=== PATIENT | female | born 1945 | race Caucasian/White ===

== ENCOUNTER → 2018-07-20 11:29 | Outpatient (CLI) | payer MEDICARE, OTHER, SELFPAY ==
[2018-07-20 12:40] LABS: Hemoglobin A1C% w Est Avg Glu 5.4 % (4.0-6.0)
[2018-07-20 12:49] LABS: Alanine Aminotransferase 20 IU/L (9-52); Albumin 3.8 g/dL (3.5-5.0); Albumin Globulin Ratio 1.2 (1.0-2.8); Alkaline Phosphatase 96 U/L (38-126); Aspartate Aminotransferase 27 IU/L (14-36); BUN Creatinine Ratio 13.8 (6-22); Bilirubin Total 0.6 mg/dL (0.2-1.3); Blood Urea Nitrogen 11 mg/dL (7-17); Calcium 9.4 mg/dL (8.4-10.2); Carbon Dioxide 30 mmol/L (22-32); Chloride 95 mmol/L (98-107); Estimated Glomerular Filt Rate > 60.0 mL/min (>60); Globulin 3.2 g/dL (1.7-4.1); Glucose 124 mg/dL (80-110); HEMOLYSIS 15 (0-50); Potassium 4.6 mmol/L (3.4-5.1); Sodium 135 mmol/L (137-145)
[2018-07-20 13:16] LABS: Thyroid Stimulating Hormone 2.39 uIU/mL (0.47-4.68)
== END ==
PROVIDERS: Family Provider Internal Medicine; PCP Internal Medicine; Visit Provider Internal Medicine
DX: I10 Essential (primary) hypertension (principal); E03.9 Hypothyroidism, unspecified; E11.9 Type 2 diabetes mellitus without complications
CPT/HCPCS: 36415; 80053; 83036; 84443

== ENCOUNTER → 2018-08-09 10:31 | Outpatient (CLI) | payer MEDICARE, SELFPAY ==
[2018-08-09 11:12] LABS: Add Manual Diff / Slide Review NO; Basophils Percent Auto 0.8 % (0-2); Eosinophils Percent Auto 1.5 % (2-4); Hematocrit 38.1 % (36-46); Hemoglobin 12.4 g/dL (12.0-16.0); Lymphocytes Percent Auto 13.6 % (25-40); Mean Corpuscular HGB Conc 32.4 % (30-36); Mean Corpuscular Hemoglobin 30.9 PG (26-34); Mean Corpuscular Volume 95.2 fL (80-100); Monocytes Percent Auto 10.7 % (3-14); Neutrophils Absolute Auto 8100 /uL (3000-5900); Neutrophils Percent Auto 73.4 % (50-75); Platelet Count 347 X10^3/uL (150-400); Red Blood Cell Count 4.01 X10^6/uL (4.0-5.2); Red Cell Distribution Width 15.2 % (11.6-14.8); White Blood Cell Count 11.1 X10^3/uL (4.5-11.0)
[2018-08-09 11:22] LABS: Alanine Aminotransferase 14 IU/L (9-52); Albumin 3.4 g/dL (3.5-5.0); Albumin Globulin Ratio 1.1 (1.0-2.8); Alkaline Phosphatase 126 U/L (38-126); Aspartate Aminotransferase 21 IU/L (14-36); BUN Creatinine Ratio 13.3 (6-22); Bilirubin Total 0.6 mg/dL (0.2-1.3); Blood Urea Nitrogen 8 mg/dL (7-17); Calcium 9.1 mg/dL (8.4-10.2); Carbon Dioxide 28 mmol/L (22-32); Chloride 93 mmol/L (98-107); Estimated Glomerular Filt Rate > 60.0 mL/min (>60); Globulin 3.2 g/dL (1.7-4.1); Glucose 167 mg/dL (80-110); HEMOLYSIS 18 (0-50); Potassium 4.2 mmol/L (3.4-5.1); Sodium 132 mmol/L (137-145); Total Protein 6.6 g/dL (6.3-8.2)
--- NOTE | 2018-08-09 16:31 | PC.NURSE ---
Pre visit labs today, WBC noted as slightly elevated at 11.1 with ANC of 8100. All other values are unremarkable. MD visit on 08/21
[2018-08-10 15:57] LABS: Free Kappa Light Chain 29.9 mg/L (3.3-19.4); Free Kappa/ Lambda Ratio 0.88 (0.26-1.65); Free Lambda 33.8 mg/L (5.7-26.3)
[2018-08-11 21:19] LABS: Albumin 2.8 g/dL (3.8-4.8); Alpha 1 Globulin 0.5 g/dL (0.2-0.3); Alpha 2 Globulin 0.9 g/dL (0.5-0.9); Beta 1 Globulin 0.4 g/dL (0.4-0.6); Gamma Globulin 1.2 g/dL (0.8-1.7); Protein, Total 6.2 g/dL (6.1-8.1)
[2018-08-13 13:22] LABS: Beta-2-Microglobulin 4.42 mg/L (< 2.52)
== END ==
PROVIDERS: Nurse Practitioner Gerontology; Family Provider Internal Medicine; PCP Internal Medicine; Visit Provider Internal Medicine Hematology & Oncology
DX: D47.2 Monoclonal gammopathy (principal)
CPT/HCPCS: 36415; 80053; 82232; 83883; 84155; 84165; 85025

== ENCOUNTER → 2018-08-21 14:01 | Oncology outpatient (ONC) | payer MEDICARE, BC, SELFPAY ==
--- NOTE | 2018-08-21 14:50 | ONC.PN ---
PN -Subjective Interval history: Chief Complaint: 73-year-old female with presumed diagnosis of MGUS. Interim events It has been almost a year since he was evaluated by Dr. Vazquez. Throughout this period of time there has been no concerns or new events except 6 persistent fatigue. Patient has extensive other medical problems and is being followed by Dr. Boo. Patient has had a history of pancreatic cancer status post Whipple resection in 2013. Postoperatively she developed acute pancreatitis and was hospitalized for almost 4 and 6 months. Since after the discharge, patient has been having significant fatigue. Patient said it is slightly improving. He denies any fever or chills. No nausea no vomiting. No diarrhea. History of present illness Patient recalled that she has been diagnosed with MGUS for at least 6 years may be 8 years. And on November 03, 2011 Dr. Vazquez performed a bone marrow aspiration and biopsy. Under final diagnosis indicated no evidence of plasma cell dysplasia or a lympho proliferative disorder. It does show evidence of monoclonal gammopathy of undetermined significance. Fish analysis was negative for multiple myeloma profile. At the time the monoclonal protein in serum measured 0.2 grams/deciliter. But since 2011 multiple protein electrophoresis has never shown the presence of monoclonal protein in the peripheral blood serum. Patient has been undergoing active surveillance. - Patient Self-Reported Symptoms SR Constitution: Fatigue/Malaise - Additional ROS All systems PM: reviewed and no additional remarkable complaints except as stated Home Medications and Allergies Home Medications Medication Instructions Recorded Confirmed Type allopurinol 300 mg PO DAILY 03/21/18 03/21/18 History amlodipine 5 mg PO DAILY 03/21/18 03/21/18 History apixaban [Eliquis] 5 mg PO BID #60 tab 03/21/18 Rx biotin 5 mg PO DAILY 03/21/18 03/21/18 History cholecalciferol (vitamin D3) 1,000 unit PO DAILY 03/21/18 03/21/18 History [Vitamin D3] coenzyme Q10 [Co Q-10] 100 mg PO DAILY 03/21/18 03/21/18 History denosumab 60 mg SUB-Q [id number] 03/21/18 03/21/18 History desloratadine 5 mg PO DAILY 03/21/18 03/21/18 History esomeprazole magnesium 40 mg PO DAILY 03/21/18 03/21/18 History furosemide 20 mg PO DAILY 03/21/18 03/21/18 History levothyroxine 75 mcg PO QAM 03/21/18 03/21/18 History lorazepam 1 mg PO Q6H PRN 03/21/18 03/21/18 History potassium chloride 10 meq PO DAILY 03/21/18 03/21/18 History pravastatin 40 mg PO BEDTIME 03/21/18 03/21/18 History metoprolol tartrate 50 mg PO BID 08/21/18 History Allergies Allergy/AdvReac Type Severity Reaction Status Date / Time fosinopril [From MONOPRIL] Allergy Severe ANAPHLAXIS Unverified 03/01/18 12:04 amoxicillin [AMOXICILLIN] AdvReac Severe DIARRHEA, Unverified 03/01/18 12:04 NAUSEA colchicine [COLCHICINE] AdvReac Severe DIARRHEA, Unverified 03/01/18 12:04 NAUSEA Exam Vital signs: Temperature 97.8?, heart rate 74, respiratory rate 18, blood pressure 122/81, saturation 97% on room air, weight 54.3 kilos, ECOG 1 Narrative: Constitutional: Well developed, well nourished, not in any acute respiratory distress, average body habitus, well groomed, pleasant and cooperative. HEENT: Normocephalic atraumatic. Extraocular muscle movement intact. Pupils are round, equal and reactive to light and accommodations. Anicteric sclera. No hearing difficulty; Oral mucus membrane moist and without ulcers. Neck: Supple, symmetrical, and tracheal midline; No palpable thyromegaly and no palpable lymph nodes. Respiratory: No use of accessory muscles. Clear to auscultation, and no wheezes or rales or rubs. Cardiovascular: Regular rate and rhythm, S1 and S2 normal, no murmurs gallops or rubs. No JVD. No pitting edema of lower extremities. Abdomen: Soft, nontender, non-distended, bowel sounds normal, no palpable organomegaly, no hernia, no palpable masses. Lower extremities: No palpable pedal edema. Lymphatic: no palpable lymph nodes in the neck, axillae, or groins. Musculoskeletal: normal gait and station, no clubbing, no cyanosis, no pitting edema. Skin: no rashes, no ulcers, no petechiae Neurological: Awake and alert and oriented x3. CN II-XII grossly intact. No focal motor or sensory deficit. Psychiatric: Good judgment, good insight, normal affect, normal thought process, cooperative, no depression, no anxiety. Results - Labs The results from August 09 were reviewed especially the protein electrophoresis. No abnormal monoclonal protein was identified. And serum free light chain ratio is within the normal range. - Imaging Additional studies: Procedures Closed [endoscopic] biopsy of large intestine (07/08/15) Replacement of Right Hip Joint with Metal on Polyethylene Synthetic Substitute, Open Approach (08/30/16) Venous catheterization, not elsewhere classified (08/10/13) Assessment and Plan (1) MGUS (monoclonal gammopathy of unknown significance) Protein electrophoresis of the peripheral blood serum has been persistently negative for the past several years. And the serum free light chain ratio is also within the normal range. In my opinion, probably the patient does not have any plasma cell dyscrasia. From that point of view, I will have the patient follow up on as-needed basis based on future events. Patient voiced understanding. (2) History of pancreatic cancer Patient underwent Whipple procedure probably in 2011 at the [facility]. Since then patient has been doing well without any clinical evidence of disease recurrence or metastasis. Patient would like to follow up with his primary care provider. (3) Fatigue Status: Acute The profound fatigue has been relatively stable probably slightly better according to patient. It has been present for the last several years since after the prolonged hospitalization for acute pancreatitis. Patient would like to continue follow-up with his primary care provider. (4) Osteoporosis Patient currently is taking calcium and vitamin-D. Patient has already received 1 dose of Prolia. Patient is scheduled to see Dr. Carmona to continue the injection. I talked with the patient if she needs any help in terms of injection, she is more than welcome to call us for follow-up visit.
[2018-08-21 14:52] VITALS: BP 125/81; PULSE 74; RESP 18; TEMP 36.6; O2SAT 97
== END ==
LOC: ONC 14:06
PROVIDERS: Family Provider Internal Medicine; PCP Internal Medicine; Visit Provider Internal Medicine Hematology & Oncology
DX: D47.2 Monoclonal gammopathy (principal); M81.0 Age-related osteoporosis without current pathological fracture; R53.83 Other fatigue; Z85.07 Personal history of malignant neoplasm of pancreas
CPT/HCPCS: 99214

== ENCOUNTER 2020-03-06 16:02 | Emergency (ER) | payer MEDICARE, BC, SELFPAY ==
--- NOTE | 2020-03-06 16:08 | DI.CT.S_ITS ---
PROCEDURE: CT HEAD/BRAIN WO CON INDICATIONS: mechanical fall, laceration to occiput, no neck pain. TECHNIQUE: Noncontrast 4.5 mm thick angled axial sections acquired from the foramen magnum to the vertex, with coronal and sagittal reformats. For radiation dose reduction, the following was used: automated exposure control, adjustment of mA and/or kV according to patient size. COMPARISON: [facility], , BRAIN WITH AND WITHOUT CONTRAS, 01/26/2011, 18:49. (A prior head CT from 2005 is not available for review from the archive at the time of this dictation.) FINDINGS: Image quality: Excellent. CSF spaces: Basal cisterns are patent. No extra-axial fluid collections. The ventricles are symmetric in size and shape. Brain: No intracranial bleeds or masses. There is cerebral volume loss for age, with resultant ventricular and sulcal prominence. There are periventricular and deep white matter chronic small vessel ischemic changes. There is intracranial internal carotid artery atherosclerosis. Skull and face: Right superior parietal laceration can be seen. No underlying calvarial fracture is seen. Calvarium and visualized facial bones appear intact, without suspicious lesions. Sinuses: Visualized sinuses and mastoids are clear. IMPRESSION: No acute intracranial hemorrhage is seen. No acute intracranial process is seen. Right superior parietal scalp laceration is seen, without an associated calvarial fracture. Dictated by: Joseph Chaudhry M.D. on 03/06/2020 at 15:35 Approved by: Joseph Chaudhry M.D. on 03/06/2020 at 15:37
--- NOTE | 2020-03-06 16:18 | ED.FALL ---
HPI - Fall General Chief Complaint: Fall Stated Complaint: trip and fall w/ lac on back of head. Time Seen by Provider: 03/06/20 16:17 Source: patient and EMS Mode of arrival: EMS Limitations: no limitations History of Present Illness HPI Narrative: This is a 75-year-old female who states that she tripped over her oxygen tubing and fell and hit the back of her head. She denies any other injuries. She denies any neck, back pain. No chest pain or shortness of breath other than some discomfort on her breast and a rash underneath both breasts which she is concerned may be fungal. She denies any nausea vomiting. No vision changes. No pain in her extremities or hips. Patient does take Eliquis. She does have a small cut on the back of her scalp. Patient states otherwise she is asymptomatic. She states that the rash underneath her breasts this initially itchy and is quite tender it has been there for 2 weeks and slowly worsening. She is on Eliquis for atrial fibrillation. Related Data Home Medications Medication Instructions Recorded Confirmed allopurinol 300 mg PO DAILY 03/21/18 03/21/18 amlodipine 5 mg PO DAILY 03/21/18 03/21/18 biotin 5 mg PO DAILY 03/21/18 03/21/18 cholecalciferol (vitamin D3) 1,000 unit PO DAILY 03/21/18 03/21/18 [Vitamin D3] coenzyme Q10 [Co Q-10] 100 mg PO DAILY 03/21/18 03/21/18 denosumab 60 mg SUB-Q [id number] 03/21/18 03/21/18 desloratadine 5 mg PO DAILY 03/21/18 03/21/18 esomeprazole magnesium 40 mg PO DAILY 03/21/18 03/21/18 furosemide 20 mg PO DAILY 03/21/18 03/21/18 levothyroxine 75 mcg PO QAM 03/21/18 03/21/18 lorazepam 1 mg PO Q6H PRN 03/21/18 03/21/18 potassium chloride 10 meq PO DAILY 03/21/18 03/21/18 pravastatin 40 mg PO BEDTIME 03/21/18 03/21/18 metoprolol tartrate 50 mg PO BID 08/21/18 Previous Rx's Medication Instructions Recorded apixaban [Eliquis] 5 mg PO BID #60 tab 03/21/18 clotrimazole 1 applictn TOP BID 14 Days 03/06/20 Allergies Allergy/AdvReac Type Severity Reaction Status Date / Time fosinopril [From MONOPRIL] Allergy Severe ANAPHLAXIS Verified 03/06/20 16:39 amoxicillin [AMOXICILLIN] AdvReac Severe DIARRHEA, Verified 03/06/20 16:39 NAUSEA colchicine [COLCHICINE] AdvReac Severe DIARRHEA, Verified 03/06/20 16:39 NAUSEA Review of Systems Review of Systems ROS Unobtainable: All systems reviewed & are unremarkable except as noted in HPI and below Patient History Medical History Diabetes mellitus type 2, diet-controlled (Acute) Gout (Acute) Hyperlipidemia (Acute) Hypertension (Acute) Hypothyroid (Acute) Osteoarthritis (Acute) Osteoporosis (Acute) Paroxysmal atrial fibrillation (Acute) Pulmonary fibrosis (Acute) Syncope (Chronic) Syncope and collapse (Acute) Surgical History S/P total hip arthroplasty (Acute) S/P total knee arthroplasty (Acute) Exam Narrative Exam Narrative: GEN: Patient appears in mild distress. HEAD: Patient has a 1.5 cm laceration posterior scalp, no raccoon/Hou sign. NECK: Nontender, painless range of motion, trachea midline Negative for Nexus criteria, there is no mid line tenderness, distracting injury, altered mental status, neuro deficit, recent EtOH. EYES: PERRLA, EOMI ENT: External inspection normal, trachea is midline, TM's are normal no hemotypanum, Nares are clear, no septal hematoma, no dental or oral injury, airway is normal and with normal occlusion, No bony tenderness RESP: Chest is nontender and has symmetric movement, no ecchymosis, breath sounds are normal no crackles, wheezes or rales CVS: Heart sounds are normal, no murmur noted, No JVD. ABG/GI: Nontender, soft, normal bowel sounds, no distention, no organomegaly, pelvic rock is negative NEURO: Oriented AOx3, neuro is grossly intact, sensation and motor is normal all 4 extremities moving, cranial nerves II through XII are intact, GCS is 15 PSYCH: Normal mood and affect SKIN: Intact, warm and dry, no crepitus and without decubitus, patient has erythema with scalp edges that appears consistent with a fungal infection on bilateral breasts. There is no active drainage of the area does look slightly moist. There is no foul odor. BACK: No CVA tenderness, no vertebral tenderness, no step-off's, no crepitus EXT: Atraumatic, hips are nontender, no pedal edema, normal color and temperature, normal range of motion of extremities with normal tendon exam, 2+ pulses in all four extremities Initial Vital Signs Initial Vital Signs: Vital Signs Pulse Rate 73 03/06/20 16:20 Respiratory Rate 100 H 03/06/20 16:20 Blood Pressure 159/73 H 03/06/20 16:20 Pulse Oximetry 99 03/06/20 16:20 Procedures Laceration Repair Laceration 1: Site: scalp Size (cm): 1.4 Description: linear Depth: simple, single layer Local Anesthetic: other anesthetic (topical prilocaine) Pre-repair: wound explored, irrigated extensively and deep structures intact (no galeal involvement) Skin layer closed with: martín (#5) Number of sutures: 5 Scores GCS [place] coma scale eye opening: Spontaneous Stephanie coma scale verbal response: Orientated [place] coma scale motor response: Obey commands [place] coma scale total score: 15 Course Orders Ordered: ED Orders 03/06/20 16:08 CT head/brain wo con Stat Discontinued Medications Diphtheria/Tetanus/Acell Pertussis (Adacel) 0.5 ml IM .ONCE ONE Stop: 03/06/20 16:18 Last Admin: 03/06/20 17:03 Dose: 0.5 ml Documented by: CONCHIS Lidocaine/Prilocaine (Lidocaine-Prilocaine Cream) 5 gm TOP NOW ONE Stop: 03/06/20 16:18 Last Admin: 03/06/20 17:03 Dose: 5 gm Documented by: CONCHIS Vital Signs Vital signs: Vital Signs - 8 hr 03/06/20 16:20 03/06/20 16:24 03/06/20 17:16 Pulse Rate 73 72 75 Respiratory Rate 100 H 16 Blood Pressure 159/73 H Blood Pressure [Left Arm] 136/67 137/68 Pulse Oximetry 99 97 99 MDM - Fall Imaging Data CT scan - head: Radiologist's Impression: [address] [address] [address] Scan Report Signed Patient: Michelle Quintanilla JMR#: [id number] : 3Acct:[id number] Age/Sex: 75 / FDate of Service: 03/06/20 Loc: ED Accession Number: [id number] Procedure: CT head/brain wo con Ordering Provider: Kim Ellis D.O. PROCEDURE: CT HEAD/BRAIN WO CON INDICATIONS: mechanical fall, laceration to occiput, no neck pain. TECHNIQUE: Noncontrast 4.5 mm thick angled axial sections acquired from the foramen magnum to the vertex, with coronal and sagittal reformats. For radiation dose reduction, the following was used: automated exposure control, adjustment of mA and/or kV according to patient size. COMPARISON: [facility], , BRAIN WITH AND WITHOUT CONTRAS, 01/26/2011, 18:49. (A prior head CT from 2005 is not available for review from the archive at the time of this dictation.) FINDINGS: Image quality: Excellent. CSF spaces: Basal cisterns are patent. No extra-axial fluid collections. The ventricles are symmetric in size and shape. Brain: No intracranial bleeds or masses. There is cerebral volume loss for age, with resultant ventricular and sulcal prominence. There are periventricular and deep white matter chronic small vessel ischemic changes. There is intracranial internal carotid artery atherosclerosis. Skull and face: Right superior parietal laceration can be seen. No underlying calvarial fracture is seen. Calvarium and visualized facial bones appear intact, without suspicious lesions. Sinuses: Visualized sinuses and mastoids are clear. IMPRESSION: No acute intracranial hemorrhage is seen. No acute intracranial process is seen. Right superior parietal scalp laceration is seen, without an associated calvarial fracture. Dictated by: Joseph Chaudhry M.D. on 03/06/2020 at 15:35 Approved by: Joseph Chaudhry M.D. on 03/06/2020 at 15:37 MDM Narrative Medical decision making narrative: Patient comes in with ground level fall. She does have a laceration on her posterior scalp which was closed with [address] is negative this was obtained because she is on Eliquis. She was able to be clinically cleared with her C-spine. Patient did show me that she has a rash which wean both breasts that looks very suspiciously fungal. We discussed keeping it clean, dry if she is able give her prescription for clotrimazole twice daily for the next 2 weeks with plan for recheck. Patient expressed understanding. Discharge Plan Departure Patient Disposition: Home Clinical Impression: Smiley infection, Laceration of scalp, Fall from ground level Instructions: Yeast Infection-Skin Activity Restrictions/Additional Instructions: Wound Care: Keep wound(s) clean and dry. Wash daily with soap and water only. Do not use over the counter products (alcohol or peroxide)on the wounds unless instructed by a physician. Under scalp laceration. On the infection underneath your breasts apply antifungal twice daily x 2 weeks. Keep the area dry and after washing, fully pat dry after washing and allow to air out intermittently during the day. If wound condition worsens (increased/expanding redness, developing fluid blisters, or worsening pain), either contact your doctor for an urgent re-assessment , or return to the Emergency Department. Return to the Emergency Department for any new or worsening symptoms. Return to the ED, urgent care, or vist a primary care doctor for removal or suture or matrín in 7-10 days Return if fever greater than 100.4 Fahrenheit, increased swelling, increasing pain or worsening symptoms such as increased discharge or spreading redness, altered mental new confusion, vision changes, severe headaches, persistent vomiting, new neck or back pain, new numbness tingling or weakness. Prescriptions: New clotrimazole 1 % cream 1 applictn TOP BID 14 Days RF: 0 No Action potassium chloride 10 mEq Capsule, Extended Release 10 meq PO DAILY RF: 0 pravastatin 40 mg Tablet 40 mg PO BEDTIME RF: 0 amlodipine 5 mg Tablet 5 mg PO DAILY RF: 0 levothyroxine 75 mcg Tablet 75 mcg PO QAM RF: 0 lorazepam 0.5 mg Tablet 1 mg PO Q6H PRN (Reason: Anxiety) RF: 0 desloratadine 5 mg Tablet 5 mg PO DAILY RF: 0 esomeprazole magnesium 40 mg Capsule,Delayed Release(Dr/Ec) 40 mg PO DAILY RF: 0 allopurinol 300 mg Tablet 300 mg PO DAILY RF: 0 furosemide 20 mg Tablet 20 mg PO DAILY RF: 0 coenzyme Q10 [Co Q-10] 100 mg Capsule 100 mg PO DAILY RF: 0 cholecalciferol (vitamin D3) [Vitamin D3] 1,000 unit Tablet 1,000 unit PO DAILY RF: 0 biotin 5 mg Tablet 5 mg PO DAILY RF: 0 denosumab 60 mg/mL Syringe 60 mg SUB-Q [id number] RF: 0 apixaban [Eliquis] 5 mg Tablet 5 mg PO BID Qty: 60 RF: 0 metoprolol tartrate 100 mg tablet 50 mg PO BID RF: 0 Referrals: Salvador Concepcion MD [Primary Care Provider] -
[2020-03-06 16:20] VITALS: BP 159/73; PULSE 73; RESP 100; O2SAT 99
[2020-03-06 16:24] VITALS: BP 136/67; PULSE 72; RESP 16; O2SAT 97
[2020-03-06] MEDS: LIDOCAINE/PRILOCAINE 5 GM TOP (17:03)
[2020-03-06] MEDS: TET,DIPH,PERTUSS(ACELL),VAC/PF 0.5 ML SYRINGE IM (17:03)
[2020-03-06 17:16] VITALS: BP 137/68; PULSE 75; O2SAT 99
[2020-03-06 18:28] VITALS: BP 137/61; PULSE 74; O2SAT 99
[2020-03-06 18:54] VITALS: BP 137/61; PULSE 74; RESP 14; O2SAT 99
--- NOTE | 2020-03-06 19:00 | PC.NURSE ---
Patient was given skin martín in her scalp. Xeroform gauze, 4x4 gauze, coban, stockinette.
== END 2020-03-06 18:59 | disposition home or self-care (01) ==
PROVIDERS: Emergency Provider Emergency Medicine; Family Provider Internal Medicine; PCP Internal Medicine
DX: S01.01XA Laceration without foreign body of scalp, initial encounter (principal); B37.2 Candidiasis of skin and nail; W18.30XA Fall on same level, unspecified, initial encounter; I48.91 Unspecified atrial fibrillation; Z79.01 Long term (current) use of anticoagulants; Z23 Encounter for immunization
CPT/HCPCS: 12001; 70450; 90471; 99284; 90715

== ENCOUNTER 2020-03-07 21:24 | Inpatient (IN) | payer MEDICARE, BC, SELFPAY ==
[2020-03-07 21:25] VITALS: BP 185/77; PULSE 82; RESP 20; TEMP 36.8; O2SAT 98; BMI 22.4
--- NOTE | 2020-03-07 21:41 | DI.CT.S_ITS ---
PROCEDURE: CT HEAD/BRAIN WO CON INDICATIONS: fall with head injury, anticoagulated, worse than yesterday TECHNIQUE: Noncontrast 4.5 mm thick angled axial sections acquired from the foramen magnum to the vertex, with coronal and sagittal reformats. For radiation dose reduction, the following was used: automated exposure control, adjustment of mA and/or kV according to patient size. COMPARISON: [facility], CT, CT HEAD/BRAIN WO CON, 03/06/2020, 16:09. FINDINGS: Image quality: Diagnostic. CSF spaces: Basal cisterns are patent. No extra-axial fluid collections. Ventricles are moderately prominent with corresponding parenchymal volume loss. Brain: No midline shift. No intracranial masses or hemorrhage. Pool-white matter interface is normal. Moderate-sized areas of low-attenuation are seen within the deep white matter and periventricular white matter of the supratentorial brain. Skull and face: Calvarium and visualized facial bones are intact, without suspicious lesions. There is a small area of subcutaneous increased attenuation identified overlying the right frontoparietal region of the head with overlying skin martín, suggesting a small area of scalp hematoma. No underlying fractures are appreciated. Sinuses: Visualized sinuses and mastoids are clear. IMPRESSION: 1. No acute intracranial hemorrhage. 2. Chronic small vessel skin changes and parenchymal volume loss are similar to the previous study. Dictated by: Leroy Lee M.D. on 03/08/2020 at 7:47 Approved by: Leroy Lee M.D. on 03/08/2020 at 7:49
[2020-03-07 22:00] VITALS: BP 167/77; PULSE 81; RESP 16; O2SAT 98
--- NOTE | 2020-03-07 22:11 | ED.NAVMDI ---
HPI - Nausea/Vomiting/Diarrhea General Chief complaint: Nausea/Vomiting/Diarrhea Stated complaint: Nausea Time Seen by Provider: 03/07/20 21:25 Source: patient and EMS Mode of arrival: EMS Limitations: no limitations History of Present Illness HPI Narrative: 75-year-old female AFib on Eliquis and untreated pancreatic cancer presents by EMS for the 2nd time in as many days. Yesterday she was seen and evaluated after she tripped on her oxygen tubing and fell causing a laceration of her scalp. She had a head CT which was read as normal and had martín placed. Additionally she was complaining of an itchy rash underneath her bilateral breasts which was diagnosed with candidiasis. Today she is complaining of nausea and some weakness. She denies any fever or chills. She denies any significant shortness of breath above and beyond her normal. She denies any cough or hemoptysis. She has had no diarrhea and is otherwise well and free of complaint. Her PCP is , but she admits she hasn't seen him in some time. She denies any cough. She denies any urinary complaints such as dysuria, ferquency, or urgency Related Data Home Medications Medication Instructions Recorded Confirmed allopurinol 300 mg PO DAILY 03/21/18 03/21/18 amlodipine 5 mg PO DAILY 03/21/18 03/21/18 biotin 5 mg PO DAILY 03/21/18 03/21/18 cholecalciferol (vitamin D3) 1,000 unit PO DAILY 03/21/18 03/21/18 [Vitamin D3] coenzyme Q10 [Co Q-10] 100 mg PO DAILY 03/21/18 03/21/18 denosumab 60 mg SUB-Q [id number] 03/21/18 03/21/18 desloratadine 5 mg PO DAILY 03/21/18 03/21/18 esomeprazole magnesium 40 mg PO DAILY 03/21/18 03/21/18 furosemide 20 mg PO DAILY 03/21/18 03/21/18 levothyroxine 75 mcg PO QAM 03/21/18 03/21/18 lorazepam 1 mg PO Q6H PRN 03/21/18 03/21/18 potassium chloride 10 meq PO DAILY 03/21/18 03/21/18 pravastatin 40 mg PO BEDTIME 03/21/18 03/21/18 metoprolol tartrate 50 mg PO BID 08/21/18 Previous Rx's Medication Instructions Recorded apixaban [Eliquis] 5 mg PO BID #60 tab 03/21/18 clotrimazole 1 applictn TOP BID 14 Days 03/06/20 Allergies Allergy/AdvReac Type Severity Reaction Status Date / Time fosinopril [From MONOPRIL] Allergy Severe ANAPHLAXIS Verified 03/07/20 21:35 amoxicillin [AMOXICILLIN] AdvReac Severe DIARRHEA, Verified 03/07/20 21:35 NAUSEA colchicine [COLCHICINE] AdvReac Severe DIARRHEA, Verified 03/07/20 21:35 NAUSEA Review of Systems Constitutional Constitutional: Denies chills, Reports fatigue, Denies fever(s), Denies frequent falls, Denies lethargy and Reports weakness Eyes Eyes: Denies change in vision, Denies eye discharge, Denies irritation and Denies loss of vision ENT Ears, Nose, Mouth, and Throat: Denies change in voice, Denies dizziness, Denies neck pain, Denies sore throat and Denies throat swelling Cardiovascular Cardiovascular: Denies chest pain, Denies irregular heart rhythm, Denies lightheadedness, Denies palpitations, Denies dyspnea, Denies dyspnea on exertion and Denies orthopnea Respiratory Respiratory: Denies cough, Denies dyspnea, Denies dyspnea on exertion and Denies wheezing Gastrointestinal Gastrointestinal: Denies abdominal pain, Denies change in bowel habits, Denies diarrhea, Reports nausea and Denies vomiting Genitourinary Genitourinary: Denies hematuria, Denies flank pain, Denies urinary incontinence and Denies urinary urgency Comments: decreased urine out put Musculoskeletal Musculoskeletal: Denies back pain, Denies muscle weakness, Denies neck pain, Denies numbness and Denies tingling Integumentary/Breasts Skin/Breast: Denies pruritus, Denies erythema, Denies rash and Denies wounds Neurologic Neurologic: Denies behavioral changes, Denies confusion, Denies dizziness, Denies frequent falls, Denies loss of vision, Denies numbness, Denies tingling and Reports weakness Psychiatric Psychiatric: Denies anxiety, Denies behavioral changes, Denies confusion, Denies depression, Denies homicidal ideation and Denies suicidal ideation Endocrine Endocrine: Reports fatigue, Denies flushing and Denies palpitations Hematologic/Lymphatic Hematologic/Lymphatic: Denies easy bruising Allergic/Immunologic Allergic/Immunologic: Denies urticaria, Denies throat swelling and Denies wheezing Patient History Medical History Diabetes mellitus type 2, diet-controlled (Acute) Gout (Acute) Hyperlipidemia (Acute) Hypertension (Acute) Hypothyroid (Acute) Osteoarthritis (Acute) Osteoporosis (Acute) Paroxysmal atrial fibrillation (Acute) Pulmonary fibrosis (Acute) Syncope (Chronic) Syncope and collapse (Acute) Surgical History S/P total hip arthroplasty (Acute) S/P total knee arthroplasty (Acute) Social History Smoking Status: Former smoker Smoking Status: Former smoker alcohol intake frequency: 0-2 drinks per day Substance Use Type: does not use Exam Narrative Exam Narrative: GENERAL: [75] year old patient appears stated age. Frail elderly, no obvious pain. HEAD: Atraumatic. Normocephalic. EYES: Pupils equal round and reactive. Extraocular motions intact. No scleral icterus. No injection or drainage. ENT: Dry mucous membranes. Nose without bleeding, purulent drainage. Throat without erythema, tonsillar hypertrophy or exudate. Airway patent. NECK: Trachea midline. Non tender CARDIOVASCULAR: Regular rate and rhythm without murmurs, gallops, or rubs. RESPIRATORY: Clear to auscultation. Breath sounds equal bilaterally. No wheezes, rales, or rhonchi. GASTROINTESTINAL: Abdomen soft, non-tender, nondistended. EXTREMITIES: No edema or joint tenderness. BACK: Nontender without deformity or crepitance. No flank tenderness. NEURO: AOx3. SKIN: No rash or erythema of visible areas. Poor turgor Initial Vital Signs Initial Vital Signs: Vital Signs Temperature 98.3 F 03/07/20 21:25 Pulse Rate 82 03/07/20 21:25 Respiratory Rate 20 03/07/20 21:25 Blood Pressure 185/77 H 03/07/20 21:25 Pulse Oximetry 98 03/07/20 21:25 Course Course Course Narrative: after 1 liter of fluid patient still unable to complete orthostatics and becomes too lightheaded to stand. She still has not produced urine Orders Ordered: ED Orders 03/07/20 21:33 EKG-12 Lead Routine 03/07/20 21:41 CT head/brain wo con Stat 03/07/20 22:10 Complete Blood Count AUTO DIFF Stat 03/07/20 22:55 XR chest 1V Stat 03/07/20 23:25 Basic Metabolic Panel Stat Lactate (Lactic Acid) Stat 03/07/20 23:33 Blood Culture Stat Ceftriaxone Sodium/Dextrose (Rocephin) 1 gm in 50 mls @ 100 mls/hr IV NOW ONE Stop: 03/08/20 00:40 Ondansetron HCl (Zofran) 4 mg IV Q4HR PRN PRN Reason: Nausea And Vomiting Last Admin: 03/07/20 22:22 Dose: 4 mg Documented by: [email or web address] Discontinued Medications Sodium Chloride (Normal Saline 0.9%) 1,000 mls @ 1,000 mls/hr IV BOLUS ONE Stop: 03/07/20 22:38 Last Infusion: 03/08/20 00:26 Dose: 1,000 mls/hr Documented by: [email or web address] Admin: 03/07/20 22:22 Dose: 1,000 mls/hr Documented by: [email or web address] Sodium Chloride (Normal Saline 0.9%) 1,000 mls @ 1,000 mls/hr IV BOLUS ONE Stop: 03/08/20 00:20 Pantoprazole Sodium (Protonix) 40 mg IV NOW ONE Stop: 03/07/20 21:40 Last Admin: 03/07/20 22:17 Dose: 40 mg Documented by: [email or web address] Vital Signs Vital signs: Vital Signs - 8 hr 03/07/20 21:25 03/07/20 22:00 03/07/20 22:32 Temperature 98.3 F Pulse Rate 82 81 80 Respiratory Rate 20 16 16 Blood Pressure 185/77 H Blood Pressure [Left Arm] 167/77 H 160/70 H Pulse Oximetry 98 98 98 03/07/20 23:15 03/08/20 00:15 Temperature 98.4 F Pulse Rate 85 78 Respiratory Rate 20 16 Blood Pressure Blood Pressure [Left Arm] 162/93 H 128/59 L Pulse Oximetry 98 100 MDM - Nausea/Vomiting/Diarrhea Lab Data Attestation: I reviewed the patient's lab results. Result diagrams: 03/07/20 22:10 04/17/20 23:25 Labs: Lab Results 03/07/20 03/07/20 03/07/20 Range/Units 22:10 23:25 23:25 WBC 17.7 H (4.5-11.0) X10^3/uL RBC 4.58 (4.0-5.2) X10^6/uL Hgb 12.6 (12.0-16.0) g/dL Hct 38.9 (36-46) % MCV 84.8 (80-100) fL MCH 27.6 (26-34) PG MCHC 32.5 (30-36) % RDW 17.5 H (11.6-14.8) % Plt Count 404 H (150-400) X10^3/uL Neut % (Auto) 86.3 H (50-75) % Lymph % (Auto) 6.3 L (25-40) % [place] % (Auto) 5.5 (3-14) % Eos % (Auto) 1.3 L (2-4) % Baso % (Auto) 0.6 (0-2) % Neut # (Auto) 74205 H (9198-7502) /uL Lymph # (Auto) 1100 (6085-2298) /uL [place] # (Auto) 1000 H (0-900) /uL Eos # (Auto) 200 (0-450) /uL Baso # (Auto) 100 (0-100) /uL Sodium 122 L (137-145) mmol/L Potassium 4.2 (3.4-5.1) mmol/L Chloride 87 L (98-107) mmol/L Carbon Dioxide 27 (22-32) mmol/L BUN 4 L (7-17) mg/dL Creatinine 0.57 (0.52-1.04) mg/dL Estimated GFR > 60.0 (>60) mL/min BUN/Creatinine Ratio 7.0 (6-22) Glucose 114 H (80-110) mg/dL Lactate 1.2 (0.7-2.1) mmol/L Calcium 8.6 (8.4-10.2) mg/dL Imaging Data CT scan - head: Radiologist's Impression: Chronic Involutional Volume Loss with no acute findings Chest x-ray: My Impression: stable appearance of pulmonary fibrosis, NAP Discharge Plan Departure Patient Disposition: Admitted As Inpatient Clinical Impression: Acute hyponatremia, Acute dehydration Admit Date/Time: 03/08/20 00:19 Admit Provider: Sg Ventura
[2020-03-07] MEDS: PANTOPRAZOLE 40 MG VIAL IV (22:17)
[2020-03-07] MEDS: ONDANSETRON 4 MG/2 ML INJ IV (22:22)
[2020-03-07] MEDS: SODIUM CHLORIDE 0.9% 1,000 ML 1000 ML IV (22:22)
[2020-03-07 22:32] VITALS: BP 160/70; PULSE 80; RESP 16; O2SAT 98
[2020-03-07 22:45] LABS: Add Manual Diff / Slide Review NO; Basophils Absolute Auto 100 /uL (0-100); Basophils Percent Auto 0.6 % (0-2); Eosinophils Absolute Auto 200 /uL (0-450); Eosinophils Percent Auto 1.3 % (2-4); Hematocrit 38.9 % (36-46); Hemoglobin 12.6 g/dL (12.0-16.0); Lymphocytes Absolute Auto 1100 /uL (1100-4500); Lymphocytes Percent Auto 6.3 % (25-40); Mean Corpuscular HGB Conc 32.5 % (30-36); Mean Corpuscular Hemoglobin 27.6 PG (26-34); Mean Corpuscular Volume 84.8 fL (80-100); Monocytes Absolute Auto 1000 /uL (0-900); Monocytes Percent Auto 5.5 % (3-14); Neutrophils Absolute Auto 15300 /uL (1500-7000); Neutrophils Percent Auto 86.3 % (50-75); Platelet Count 404 X10^3/uL (150-400); Red Blood Cell Count 4.58 X10^6/uL (4.0-5.2); Red Cell Distribution Width 17.5 % (11.6-14.8); White Blood Cell Count 17.7 X10^3/uL (4.5-11.0)
--- NOTE | 2020-03-07 22:55 | DI.RAD.S_ITS ---
PROCEDURE: XR CHEST 1V INDICATIONS: elevated WBCs, weakness, increased SOB TECHNIQUE: One view of the chest was acquired. COMPARISON: [facility], , CHEST 1 VIEW, 03/19/2016, 18:01. [facility], , CHEST 1 VIEW, 03/19/2018, 20:11. FINDINGS: Surgical changes and devices: None. Lungs and pleura: Increase attenuation is identified along the lateral margin of the left mid lung. There may also be increased density at the left lung base. No large effusion or definite pneumothorax is appreciated. There slight elevation of the right diaphragm. Mediastinum: Mediastinal contours appear normal. Heart size is normal. Bones and chest wall: No suspicious bony lesions. Overlying soft tissues appear unremarkable. IMPRESSION: Left lateral pulmonary consolidation probably represents pneumonia. Atelectasis may also have this appearance. Dictated by: Leroy Lee M.D. on 03/08/2020 at 7:46 Approved by: Leroy Lee M.D. on 03/08/2020 at 7:47
--- NOTE | 2020-03-07 23:10 | PC.NURSE ---
2300 #16foley placed with some difficulty.Urinary meatus & surrounding tissue sl excoriated.Pt c/o pain with cleaning with betadyne swabs,pt had extreme difficulty relaxing for procedure.Some resistance met with inserting pierce. Balloon inflated without complaint from pt. No urine noted in tube.Pt states has not had any fluid intake today due to nausea. This nurse asked another nurse to assess catheter placement.
[2020-03-07 23:15] VITALS: BP 162/93; PULSE 85; RESP 20; TEMP 36.9; O2SAT 98
--- NOTE | 2020-03-07 23:35 | PC.NURSE ---
attempted cath insertion, unable to get return, pt co discomfort. Has bleeding to posterior fourchette. no trauma to area, co pain with cleaning.
[2020-03-07 23:57] LABS: Blood Urea Nitrogen 4 mg/dL (7-17); Calcium 8.6 mg/dL (8.4-10.2); Carbon Dioxide 27 mmol/L (22-32); Chloride 87 mmol/L (98-107); Estimated Glomerular Filt Rate > 60.0 mL/min (>60); Glucose 114 mg/dL (80-110); HEMOLYSIS < 15 (0-50); Lactate (Lactic Acid) 1.2 mmol/L (0.7-2.1); Potassium 4.2 mmol/L (3.4-5.1); Sodium 122 mmol/L (137-145)
[2020-03-08] VITALS (12 sets, daily range): BP systolic 98–143; BP diastolic 49–70; PULSE 72–93; RESP 16–24; TEMP 36.4–36.9; O2SAT 94–100; BMI 25.6
[2020-03-08] MEDS: SODIUM CHLORIDE 0.9% 1,000 ML 1000 ML IV (00:36)
[2020-03-08] MEDS: CEFTRIAXONE 1 GM/50 ML FROZ.PIGGY IV (00:37)
[2020-03-08] MEDS: ONDANSETRON 4 MG/2 ML INJ IV ×2 (00:39→08:13)
--- NOTE | 2020-03-08 00:49 | PC.NURSE ---
Pt has excoriation under breast which she states was supposed to get a script for this,but did not get it filled.
--- NOTE | 2020-03-08 00:52 | PC.NURSE ---
Pt has had a full liter of fluids,2nd liter infusing wide open.Pt has not urinated as yet.Dr Piper aware.
--- NOTE | 2020-03-08 02:10 | PM.HP.1 ---
History of Present Illness History of Present Illness Date Patient Seen: 03/08/20 Time Patient Seen: 01:54 Chief complaint: Nausea Narrative: Ms. Michelle Quintanilla is a 75-year-old female with a history significant for pancreatic cancer status post Whipple procedure in 2013, postprocedural pancreatitis requiring extended hospitalization and ventilatory support for 4 months, pulmonary fibrosis, paroxysmal atrial fibrillation, diet-controlled diabetes type 2, hypertension, hyperlipidemia, hypothyroid, gout and osteoporosis who presents to the ER tonight with increasing weakness. The patient was seen in the ER yesterday following a fall that occurred when the patient tripped on her O2 tubing. The patient sustained a scalp laceration and underwent CT scan with history anticoagulation on Eliquis. Today the patient is felt weak and lightheaded and dizzy. She continues to reside at [facility] and is normally ambulatory with a walker. She denies headache but has tenderness over her scalp laceration. She denies visual changes, nasal congestion or sore throat. She denies fevers or chills though she appears with gross motor tremors consistent with rigors that are new. Denies complaints of chest pain or palpitations with a history of paroxysmal atrial fibrillation. She has chronic exertional dyspnea and shortness of breath in uses home O2 as needed. She denies complaints of abdominal pain or nausea. No diarrhea or constipation, last bowel movement was yesterday. The patient denies urinary symptoms urgency frequency, burning or hematuria. Upon arrival to the ER the patient is afebrile with temperature 98.3?, heart rate of 82, blood pressure 185/77, respiratory rate of 20 saturating 90% on 3 L nasal cannula. A chest x-ray was obtained which stable appearing pulmonary fibrosis. Repeat CT of the head is obtained which finds chronic involutional volume loss without acute changes. On laboratory analysis she has a white count of 17.7, hemoglobin of 12.6, hematocrit 38.9 and platelets of 404. She is hyponatremic at 122 with a potassium of 4.2 chloride of 87, CO of 27 with a BUN of 4 and a creatinine of 0.2nd. Her nonfasting glucose is 114. A lactic acid is 1.2. The patient received 1.5 L of normal saline in the emergency department the patient remained profoundly orthostatic feeling dizzy upon sitting up. Attempt was made at urinary catheterization for UA sample without success. The patient was started on ceftriaxone for empiric antibiotic and the patient is admitted to the medicine service for hyponatremia, dehydration, leukocytosis. Patient History Medical History (Updated 03/08/20 @ 02:39 by VIRAJ Ma) Diabetes mellitus type 2, diet-controlled (Acute) Gout (Acute) History of pancreatic cancer (Inactive) Hyperlipidemia (Acute) Hypertension (Acute) Hypothyroid (Acute) Osteoarthritis (Acute) Osteoporosis (Acute) Pancreatitis (Acute) Paroxysmal atrial fibrillation (Acute) Pulmonary fibrosis (Acute) Syncope (Chronic) Syncope and collapse (Acute) Surgical History (Updated 03/08/20 @ 02:39 by VIRAJ Ma) History of major abdominal surgery (Acute) S/P total hip arthroplasty (Acute) S/P total knee arthroplasty (Acute) Family & Social History Family History (Updated 03/08/20 @ 02:41 by VIRAJ Ma) Father Heart disease Mother Heart disease Brother Heart disease Myocardial infarction Social History: Prior Living Arrangements [facility] Safety & Behavioral: Feels Safe in Current Yes Environment Been Physically Hurt or No Threatened By a Person Suicidal Ideation Description None Suicide Plan Description No Plan Tobacco & Substance use: Smoking Status Former smoker alcohol intake frequency 0-2 drinks per day Substance Use Type does not use Comment: The patient is since 2007 and currently resides at [facility]. Father mother and brother all had heart disease her father passing away at age 75 and her mom in her 80s and her brother passing away from heart attack at age 55. Smoking: The patient quit smoking in the 1960s before which she smoked 2 packs per day. Alcohol: The patient consumes 1 glass of wine per week. Substance use: Patient denies recreation pharmaceuticals herbal or cannabis products. Advanced directives: In direct discussion with the patient she states her wish to be FULL CODE. She designates her sister Cici ([phone]) or her brother Giovani ([phone]) to be her surrogate decision makers. Meds Home Medications and Allergies Home Medications Medication Instructions Recorded Confirmed Type allopurinol 300 mg PO DAILY 03/21/18 03/21/18 History amlodipine 5 mg PO DAILY 03/21/18 03/21/18 History apixaban [Eliquis] 5 mg PO BID #60 tab 03/21/18 Rx biotin 5 mg PO DAILY 03/21/18 03/21/18 History cholecalciferol (vitamin D3) 1,000 unit PO DAILY 03/21/18 03/21/18 History [Vitamin D3] coenzyme Q10 [Co Q-10] 100 mg PO DAILY 03/21/18 03/21/18 History denosumab 60 mg SUB-Q [id number] 03/21/18 03/21/18 History desloratadine 5 mg PO DAILY 03/21/18 03/21/18 History esomeprazole magnesium 40 mg PO DAILY 03/21/18 03/21/18 History furosemide 20 mg PO DAILY 03/21/18 03/21/18 History levothyroxine 75 mcg PO QAM 03/21/18 03/21/18 History lorazepam 1 mg PO Q6H PRN 03/21/18 03/21/18 History potassium chloride 10 meq PO DAILY 03/21/18 03/21/18 History pravastatin 40 mg PO BEDTIME 03/21/18 03/21/18 History metoprolol tartrate 50 mg PO BID 08/21/18 History clotrimazole 1 applictn TOP BID 14 Days 03/06/20 Rx Allergies Allergy/AdvReac Type Severity Reaction Status Date / Time fosinopril [From MONOPRIL] Allergy Severe ANAPHLAXIS Verified 03/07/20 21:35 amoxicillin [AMOXICILLIN] AdvReac Severe DIARRHEA, Verified 03/07/20 21:35 NAUSEA colchicine [COLCHICINE] AdvReac Severe DIARRHEA, Verified 03/07/20 21:35 NAUSEA Review of Systems Review of Systems ROS: Yes All systems reviewed with the patient and are negative except as otherwise documented Exam Vital Signs (past 8 hours): - 03/07/20 21:25 03/07/20 22:00 03/07/20 22:32 Temperature 98.3 F Pulse Rate 82 81 80 Respiratory Rate 20 16 16 Blood Pressure 185/77 H Blood Pressure [Left Arm] 167/77 H 160/70 H Pulse Oximetry 98 98 98 03/07/20 23:15 03/08/20 00:15 03/08/20 00:50 Temperature 98.4 F 98.2 F Pulse Rate 85 78 78 Respiratory Rate 20 16 16 Blood Pressure Blood Pressure [Left Arm] 162/93 H 128/59 L 141/64 H Pulse Oximetry 98 100 98 03/08/20 01:10 03/08/20 01:38 Temperature 98.2 F 98.2 F Pulse Rate 78 93 H Respiratory Rate 16 18 Blood Pressure 141/64 H 98/49 L Blood Pressure [Left Arm] Pulse Oximetry 98 94 Oxygen Delivery Method Nasal Cannula Oxygen Flow Rate 0 Narrative Exam Narrative: GENERAL APPEARANCE: well developed, frail-appearing elderly female, in no acute distress. HEENT: scalp laceration 1.5 cm posterior head with martín, PERRLA, conjunctiva clear, EOMs intact without nystagmus, no sinus tenderness to percussion, no rhinorrhea, dry and pink mucous membranes. NECK/THYROID: Decreased ROM, nontender, no step-offs, no JVD, no thyromegaly, trachea midline. LYMPH NODES: no cervical or supraclavicular lymphadenopathy. SKIN: [place], warm and dry, red well the demarcated rash under breasts perineum and buttocks, dry skin with poor turgor. HEART: regular rate and rhythm, S1-S2, no murmur, no rubs or gallops, brisk capillary refill, no edema LUNGS: clear to auscultation bilaterally, no coarseness crackles or wheezing, no cough present CHEST: Symmetrical movement, no accessory muscle use, shallow tidal volume. ABDOMEN: Soft, no distention, no abdominal tenderness, no organomegaly, no flank tenderness, active bowel tones. EXTREMITIES: Gross motor tremors right upper extremity, moves all extremities, strength is 3/5 and symmetrical, no deformities or joint effusions. NEUROLOGIC: AAO x3, cranial nerves II-XII grossly intact, bilateral lower extremity neuropathy distal 3rd of lower leg, hearing grossly normal to speech. PSYCH: Good eye contact, cooperative, appropriate with stable behavior Objective Labs Result Diagrams: 03/07/20 22:10 03/07/20 23:25 Labs: Laboratory Results - last 24 hr 03/07/20 03/07/20 03/07/20 22:10 23:25 23:25 WBC 17.7 H RBC 4.58 Hgb 12.6 Hct 38.9 MCV 84.8 MCH 27.6 MCHC 32.5 RDW 17.5 H Plt Count 404 H Neut % (Auto) 86.3 H Lymph % (Auto) 6.3 L [place] % (Auto) 5.5 Eos % (Auto) 1.3 L Baso % (Auto) 0.6 Neut # (Auto) 92969 H Lymph # (Auto) 1100 [place] # (Auto) 1000 H Eos # (Auto) 200 Baso # (Auto) 100 Sodium 122 L Potassium 4.2 Chloride 87 L Carbon Dioxide 27 BUN 4 L Creatinine 0.57 Estimated GFR > 60.0 BUN/Creatinine Ratio 7.0 Glucose 114 H Lactate 1.2 Calcium 8.6 Assessment & Plan Assessment & Plan narrative: This is a 75-year-old female patient who who was seen in the ER yesterday and then presents in the ER again today with progressive weakness and dizziness. Patient is found to be dehydrated with hyponatremia with leukocytosis. 1. Hyponatremia, acute, present on admission, active. -patient presented to the ER with generalized weakness lightheadedness and dizziness, sodium level is found to be 122. -patient appears dehydrated and takes Lasix 20 mg daily. Patient was seen in the ER yesterday without notation is significant weakness or confusion. -hyponatremia and likely secondary to dehydration, patient reports questionable dietary habits food and fluid intake. -patient received 1500 cc of normal saline in the emergency department, the remains orthostatic. -continue sodium repletion at 100 cc/hour. -will recheck sodium at 7:00 a.m. and adjust repletion as indicated. 2. Acute dehydration, present on admission, active. -dry mucous membranes, dry skin with poor turgor -Patient remains orthostatic after 1500 cc of IV fluid -will encourage oral fluids and normal saline 100 cc/hour. -monitor I's and O's, daily weights. 3. Leukocytosis, unclear etiology, possible UTI, present on admission, active -Patient remains afebrile with no complaints of pain, shortness of breath be on normal, urinary symptoms. -patient unable to void in the ER, attempted catheterization was unsuccessful. -will bladder scan patient and continue hydration. Will send urinalysis when obtained. -lactic acid 1.6, blood cultures have been drawn, will add procalcitonin. -continue ceftriaxone 1 g IV every 24 hours. 4. Pulmonary fibrosis, present on admission, stable -patient remote smoker quitting in the 1960s before which she smoked up to 2 packs per day. She denies worsening of her chronic dyspnea. -chest x-ray finds no acute changes, no cough or wheezing. Patient maintains stable saturation 93% on room air. -respiratory therapy to consult -incentive spirometry every 2 hours while awake. -supplemental oxygen as needed to maintain oxygen greater than 90% 5. Paroxysmal atrial fibrillation, chronic, in sinus rhythm, stable. -patient denies complaints of chest pain or palpitations -12 lead EKG is sinus rhythm with a ventricular rate of 80, first-degree AV block, without ectopy and left axis shift. -potassium is 4.2, ordered magnesium level. -continue home medication of metoprolol 50 mg twice daily. -continue anticoagulation with Eliquis 5 mg twice daily. 6. Essential hypertension, chronic, active -patient presents with elevated blood pressure 185/77 improved to 141/77 while in the ER and then 98/49 on admission to the floor.. -will hold patient's antihypertensives including amlodipine 5 mg daily and Lasix 20 mg daily. Will continue metoprolol for cardiac rhythm management. -will continue to follow blood pressures closely. 7. Diabetes type 2, diet controlled, chronic, stable. -blood sugars 114 on admission labs. -ordered medium carbohydrate diet. 8. Acquired hypothyroidism, present on admission, stable -will continue home regimen of levothyroxine 75 mcg daily. -will obtain TSH with reflex to T4. 9. Dyslipidemia, chronic, present on admission, stable. -continue patient's home regimen and pravastatin 40 mg daily at bedtime. VTE prophylaxis: SCDs, anticoagulated on Eliquis. IV fluid: Normal saline 100 cc per. Diet: Medium constant carbohydrate diet. Code status: FULL CODE. The patient is admitted to the hospital due to the severity of her symptoms and need for ongoing monitored repletion of sodium, correction dehydration and further evaluation for leukocytosis. The patient is admitted as an inpatient with expected length of stay to be greater than 2 midnights. Quality VTE Deep Vein Thrombosis/Pulmonary Embolism Present on Admission: No
--- NOTE | 2020-03-08 02:13 | PC.ADMIT ---
[id number] Admission Note: The patient,Michelle Quintanilla,75 y/o, was given written information regarding hospital policies, unit procedures and contact persons. Patient's smoking status: Former smoker. Vital Signs - 8 hr 03/07/20 21:25 03/07/20 22:00 03/07/20 22:32 Temperature 98.3 F Pulse Rate 82 81 80 Respiratory Rate 20 16 16 Blood Pressure 185/77 H Blood Pressure [Left Arm] 167/77 H 160/70 H Pulse Oximetry 98 98 98 03/07/20 23:15 03/08/20 00:15 03/08/20 00:50 Temperature 98.4 F 98.2 F Pulse Rate 85 78 78 Respiratory Rate 20 16 16 Blood Pressure Blood Pressure [Left Arm] 162/93 H 128/59 L 141/64 H Pulse Oximetry 98 100 98 03/08/20 01:10 03/08/20 01:38 Temperature 98.2 F 98.2 F Pulse Rate 78 93 H Respiratory Rate 16 18 Blood Pressure 141/64 H 98/49 L Blood Pressure [Left Arm] Pulse Oximetry 98 94 Patient arrived @ 0115 accompanied by ED RN, used slider board to transfer d/t extreme weakness. AxOx3, can make needs known. Lives at [facility] and uses a walker only when ambulated to dining lopez. Large fungal yeast infection under bilateral breasts, thoroughly cleaned and put pillow case under breast fold. Excoriation to labial folds and gluteal cleft, cleaned. Recent fall, laceration to scalp with martín. Hx of bilateral neuropathy to crew sock level. C/o nausea with reflux. Lung sounds clear but diminished in bases, on 1L by NC, uses home O2 r/t pulmonary fibrosis and has SOB with exertion. High fall risk d/t recent fall and profound weakness, unable to complete orthostatics in ED. Patient in yellow gown, bed alarm on and functioning, call light in reach.
[2020-03-08 02:19] LABS: Magnesium 1.7 mg/dL (1.6-2.3); Phosphorous 2.9 mg/dL (2.8-4.1)
[2020-03-08 02:24] LABS: Bilirubin Urine UA NEGATIVE (NEGATIVE); Color Urine UA YELLOW; Glucose Urine UA NEGATIVE (Negative); Ketones Urine UA NEGATIVE (NEGATIVE); Leukocyte Esterase Urine UA 1+ (NEGATIVE); Nitrite Urine UA NEGATIVE (Negative); Occult Blood Urine UA 3+ (Negative); Protein Urine UA NEGATIVE (Negative); Urobilinogen Urine UA 0.2 E.U./dL (0.2)
[2020-03-08] MEDS: SODIUM CHLORIDE 0.9% 1,000 ML 100 ML IV ×3 (02:34→16:39)
[2020-03-08 02:39] LABS: Appearance Urine UA Slightly Cloudy; Bacteria Urine Many (>30); Culture Indicated Urine Specimen Cultured; RBC Urine 1-5/HPF (0-5/HPF); Squamous Epithelial Cell Urine 1-5 /HPF (0-5/HPF); WBC Urine 1-5/HPF (0-5/HPF); pH Urine UA 6.5 (4.5-8.0)
[2020-03-08 03:12] LABS: Procalcitonin < 0.05 ng/mL (<0.5)
[2020-03-08] MEDS: ACETAMINOPHEN 325 MG TABLET 650 MG PO ×2 (05:08→16:39)
[2020-03-08] MEDS: LEVOTHYROXINE 75 MCG TABLET PO (05:11)
[2020-03-08 07:05] LABS: Add Manual Diff / Slide Review NO; Basophils Absolute Auto 100 /uL (0-100); Basophils Percent Auto 0.5 % (0-2); Eosinophils Absolute Auto 100 /uL (0-450); Eosinophils Percent Auto 0.8 % (2-4); Hematocrit 35.4 % (36-46); Hemoglobin 11.5 g/dL (12.0-16.0); Lymphocytes Absolute Auto 1000 /uL (1100-4500); Lymphocytes Percent Auto 6.3 % (25-40); Mean Corpuscular HGB Conc 32.4 % (30-36); Mean Corpuscular Hemoglobin 27.5 PG (26-34); Monocytes Absolute Auto 1000 /uL (0-900); Monocytes Percent Auto 6.5 % (3-14); Neutrophils Absolute Auto 13700 /uL (1500-7000); Neutrophils Percent Auto 85.9 % (50-75); Platelet Count 357 X10^3/uL (150-400); Red Blood Cell Count 4.16 X10^6/uL (4.0-5.2); Red Cell Distribution Width 16.9 % (11.6-14.8); White Blood Cell Count 15.9 X10^3/uL (4.5-11.0)
[2020-03-08 07:15] LABS: BUN Creatinine Ratio 7.7 (6-22); Blood Urea Nitrogen 4 mg/dL (7-17); Calcium 8.1 mg/dL (8.4-10.2); Carbon Dioxide 23 mmol/L (22-32); Chloride 93 mmol/L (98-107); Estimated Glomerular Filt Rate > 60.0 mL/min (>60); Glucose 111 mg/dL (80-110); HEMOLYSIS 23 (0-50); Potassium 3.9 mmol/L (3.4-5.1); Sodium 122 mmol/L (137-145)
--- NOTE | 2020-03-08 07:52 | P.PN_ITS ---
Subjective Subjective Date Patient Seen: 03/08/20 Time Patient Seen: 10:52 Interval history: This is a 75-year-old female patient who who was seen in the ER once the day before admission and then again presented to the ER again 03/07 with progressive weakness and dizziness. Patient was found to be dehydrated with hyponatremia and with a UTI/leukocytosis. 1. Hyponatremia, acute, present on admission, active. -patient presented to the ER 03/07 with generalized weakness lightheadedness and dizziness, sodium level is found to be 122 and on repeat 03/08 is 122. -patient appears dehydrated and takes Lasix 20 mg daily. Patient was seen in the ER 03/06 without noting any significant weakness or confusion. -hyponatremia is likely secondary to dehydration, patient reports questionable dietary habits of food and fluid intake. -patient received 1500 cc of normal saline in the emergency department. -continue sodium repletion at 100 cc/hour. -will recheck sodium 03/09 a.m. and adjust repletion as indicated. 2. Acute dehydration, present on admission, active. -dry mucous membranes, dry skin with poor turgor -Patient remained orthostatic after 1500 cc of IV fluid -encourage oral fluids and normal saline 100 cc/hour. -monitor I's and O's, daily weights. 3. UTI, present on admission, active -Patient remains afebrile with no complaints of pain, shortness of breath, urinary symptoms. -patient unable to void in the ER, attempted catheterization was unsuccessful. -will bladder scan patient and continue hydration. UA is abnormal 3+ blood with 1-5 WBC possibly c/w UTI. UC pending. -lactic acid 1.6, blood cultures have been drawn, and procalcitonin is less than .05. -continue ceftriaxone 1 g IV every 24 hours. 4. Pulmonary fibrosis, present on admission, stable -patient remote smoker quitting in the 1960s before which she smoked up to 2 packs per day. She denies worsening of her chronic dyspnea. -chest x-ray finds no acute changes, no cough or wheezing. Patient maintains stable saturation 93% on room air. -respiratory therapy following -incentive spirometry every 2 hours while awake. -supplemental oxygen as needed to maintain oxygen greater than 90% 5. Paroxysmal atrial fibrillation, chronic, in sinus rhythm, stable. -patient denies complaints of chest pain or palpitations -12 lead EKG is sinus rhythm with a ventricular rate of 80, first-degree AV block, without ectopy and left axis shift. -potassium is 4.2, ordered magnesium level. -continue home medication of metoprolol 50 mg twice daily. -continue anticoagulation with Eliquis 5 mg twice daily. 6. Essential hypertension, chronic, active -patient presents with elevated blood pressure 185/77 improved to 141/77 while in the ER and then 98/49 on admission to the floor.. -continue holding patient's antihypertensives including amlodipine 5 mg daily and Lasix 20 mg daily. Will continue metoprolol for cardiac rhythm management. -will continue to follow blood pressures closely. 7. Diabetes type 2, diet controlled, chronic, stable. -blood sugars 114 on admission labs. -medium carbohydrate diet. 8. Acquired hypothyroidism, present on admission, stable -will continue home regimen of levothyroxine 75 mcg daily. -TSH 5.01 with reflex to T4 1.69. Consider increasing Levothyroxine dose. 9. Dyslipidemia, chronic, present on admission, stable. -continue patient's home regimen and pravastatin 40 mg daily at bedtime. VTE prophylaxis: SCDs, anticoagulated on Eliquis. IV fluid: Normal saline 100 cc per. Diet: Medium constant carbohydrate diet. Code status: FULL CODE. Exam Vital Signs (past 8 hours): - 03/08/20 00:15 03/08/20 00:50 03/08/20 01:10 Temperature 98.2 F 98.2 F Pulse Rate 78 78 78 Respiratory Rate 16 16 16 Blood Pressure 141/64 H Blood Pressure [Left Arm] 128/59 L 141/64 H Pulse Oximetry 100 98 98 03/08/20 01:38 03/08/20 02:26 03/08/20 05:47 Temperature 98.2 F 98.2 F 97.9 F Pulse Rate 93 H 93 H 89 Respiratory Rate 18 18 24 Blood Pressure 98/49 L 98/49 L 143/60 H Blood Pressure [Left Arm] Pulse Oximetry 94 94 98 Oxygen Delivery Method Nasal Cannula Oxygen Flow Rate 1 Objective Labs Result Diagrams: 03/08/20 06:58 03/08/20 06:58 Labs: Laboratory Results - last 24 hr 03/07/20 03/07/20 03/07/20 22:10 23:25 23:25 WBC 17.7 H RBC 4.58 Hgb 12.6 Hct 38.9 MCV 84.8 MCH 27.6 MCHC 32.5 RDW 17.5 H Plt Count 404 H Neut % (Auto) 86.3 H Lymph % (Auto) 6.3 L [place] % (Auto) 5.5 Eos % (Auto) 1.3 L Baso % (Auto) 0.6 Neut # (Auto) 82888 H Lymph # (Auto) 1100 [place] # (Auto) 1000 H Eos # (Auto) 200 Baso # (Auto) 100 Sodium 122 L Potassium 4.2 Chloride 87 L Carbon Dioxide 27 BUN 4 L Creatinine 0.57 Estimated GFR > 60.0 BUN/Creatinine Ratio 7.0 Glucose 114 H Lactate 1.2 Calcium 8.6 Phosphorus Magnesium Procalcitonin Urine Color Urine Appearance Urine pH Ur Specific Terrell Urine Protein Urine Glucose (UA) Urine Ketones Urine Occult Blood Urine Nitrate Urine Bilirubin Urine Urobilinogen Ur Leukocyte Esterase Urine RBC Urine WBC Ur Squamous Epith Cells Urine Bacteria Ur Culture Indicated? 03/07/20 03/07/20 03/08/20 23:25 23:25 02:13 WBC RBC Hgb Hct MCV MCH MCHC RDW Plt Count Neut % (Auto) Lymph % (Auto) [place] % (Auto) Eos % (Auto) Baso % (Auto) Neut # (Auto) Lymph # (Auto) [place] # (Auto) Eos # (Auto) Baso # (Auto) Sodium Potassium Chloride Carbon Dioxide BUN Creatinine Estimated GFR BUN/Creatinine Ratio Glucose Lactate Calcium Phosphorus 2.9 Magnesium 1.7 Procalcitonin < 0.05 Urine Color Yellow Urine Appearance Slightly cloudy Urine pH 6.5 Ur Specific Terrell 1.010 Urine Protein Negative Urine Glucose (UA) Negative Urine Ketones Negative Urine Occult Blood 3+ H Urine Nitrate Negative Urine Bilirubin Negative Urine Urobilinogen 0.2 Ur Leukocyte Esterase 1+ H Urine RBC 1-5/hpf Urine WBC 1-5/hpf Ur Squamous Epith Cells 1-5 /hpf Urine Bacteria Many (>30) H Ur Culture Indicated? Specimen cultured 03/08/20 03/08/20 06:58 06:58 WBC 15.9 H RBC 4.16 Hgb 11.5 L Hct 35.4 L MCV 85.0 MCH 27.5 MCHC 32.4 RDW 16.9 H Plt Count 357 Neut % (Auto) 85.9 H Lymph % (Auto) 6.3 L [place] % (Auto) 6.5 Eos % (Auto) 0.8 L Baso % (Auto) 0.5 Neut # (Auto) 31824 H Lymph # (Auto) 1000 L [place] # (Auto) 1000 H Eos # (Auto) 100 Baso # (Auto) 100 Sodium 122 L Potassium 3.9 Chloride 93 L Carbon Dioxide 23 BUN 4 L Creatinine 0.52 Estimated GFR > 60.0 BUN/Creatinine Ratio 7.7 Glucose 111 H Lactate Calcium 8.1 L Phosphorus Magnesium Procalcitonin Urine Color Urine Appearance Urine pH Ur Specific Terrell Urine Protein Urine Glucose (UA) Urine Ketones Urine Occult Blood Urine Nitrate Urine Bilirubin Urine Urobilinogen Ur Leukocyte Esterase Urine RBC Urine WBC Ur Squamous Epith Cells Urine Bacteria Ur Culture Indicated? Quality VTE Deep Vein Thrombosis/Pulmonary Embolism Present on Admission: No
[2020-03-08] MEDS: METOPROLOL IR 50 MG TABLET PO ×2 (08:13→21:08)
[2020-03-08] MEDS: APIXABAN 5 MG TABLET PO ×2 (08:13→21:08)
[2020-03-08] MEDS: allopurinoL 300 MG TABLET PO (08:18)
[2020-03-08 08:45] LABS: TSH w/ Reflex to FT4 5.01 uIU/mL (0.47-4.68)
[2020-03-08 09:18] LABS: Free T4, Direct Thyroxine 1.69 ng/dL (0.78-2.19)
--- NOTE | 2020-03-08 09:27 | OT.IP.EVAL ---
Past Medical History (Last Updated 03/08/20 @ 02:39 by VIRAJ Ma) Diabetes mellitus type 2, diet-controlled (Acute) Gout (Acute) History of pancreatic cancer (Inactive) Hyperlipidemia (Acute) Hypertension (Acute) Hypothyroid (Acute) Osteoarthritis (Acute) Osteoporosis (Acute) Pancreatitis (Acute) Paroxysmal atrial fibrillation (Acute) Pulmonary fibrosis (Acute) Syncope (Chronic) Syncope and collapse (Acute) Surgical History (Last Updated 03/08/20 @ 02:39 by VIRAJ Ma) History of major abdominal surgery (Acute) S/P total hip arthroplasty (Acute) S/P total knee arthroplasty (Acute) Occupational Therapy Inpatient Evaluation/Re-Eval M1 PT/OT-IP Prior Functional Status Start: 03/08/20 09:59 Freq: NEEDED Status: Active Protocol: Document 03/08/20 10:00 CGR (Rec: 03/08/20 10:15 CGR [email or web address]) Medical Review Prior Functional Status Communication Pt is an effective verbal communicator. Mobility and Gait Pt was IND without AD in her apt but used a 4WW for mobility outside of her apt. Activities of Daily Living and IADL's Pt was IND for all ADLs and IADLs, Pt states that she no longer wears socks because they are too hard to get on and she doesn't like the way they feel. Social History Household Members none Living Arrangements Residential Facility Number of Floors (Floors) One Floor Number of Stairs To Enter/Railing? 0 Home Environment Standard Height Toilet,Walk in Shower,Built-In Shower Seat Home Equipment Four Wheel Walker,Straight Cane,Manual Wheelchair, Hospital Bed,Grab Bars Near Toilet,Grab Bars In Shower Employment Status Retired Additional Social History Comment Pt states she does not have family near by M2 OT-IP Current Condition Start: 03/08/20 09:59 Freq: Status: Active Protocol: Document 03/08/20 10:00 CGR (Rec: 03/08/20 10:15 CGR [email or web address]) Occupational Therapy Current Condition Current Condition Evaluation Date 03/08/20 Treatment Diagnosis recent fall, hyponatremia, dehydration and leukocytosis. Diagnosis Onset Date 03/08/20 M3 OT- IP Subjective and Pain Start: 03/08/20 09:59 Freq: Status: Active Protocol: Document 03/08/20 10:00 CGR (Rec: 03/08/20 10:15 CGR [email or web address]) OT- Subjective Occupational Therapy Visit Type Type Initial Evaluation Visit Start Time 08:54 Visit Stop Time 09:27 Total Visit Minutes 33 Occupational Therapy Visit Comments Patient Comments I am still nauseated OT Pain Assessment Pain When Pain Assessed At Rest Pain Present Pain Present Pain Reported Location Back Intensity 5 Scale Used Numeric (1 - 10) Management Techniques Modification of Treatment,Re- positioning M4 OT- IP ADL's Start: 03/08/20 09:59 Freq: Status: Active Protocol: Document 03/08/20 10:00 CGR (Rec: 03/08/20 10:15 CGR [email or web address]) OT SPC-Yegv-Tmhlunc General Evaluation Self-Feeding Ability Independent Comments OT Self-Feeding Comments for breakfast at end of session. OT ADL-Grooming General Evaluation Grooming Ability Standby Assistance Areas Needing Assistance Retrieving/Set-up of Grooming Items,Combing/Brushing Hair, Face Washing Comments OT Grooming Comments standing at sink OT ADL-Oral Care General Eval Oral Care Ability Standby Assistance Areas of Assistance Brushing Teeth,Retrieving/Set- Up of Items Comments Oral Care Comments standing at sink OT ADL-Dressing General Eval Lower Body Dressing Ability Standby Assistance Comments OT Dressing Comments for slip on shoes. OT ADL-Toileting General Evaluation Toileting Ability Standby Assistance Devices Toileting Assistive Devices Grab Bars Comments OT Toileting Comments Pt urinated seated on toilet. Performed pericare without assist. OT ADL-Bathing Comments OT Bathing Comments Not performed in this session. M5 OT- IP IADL's Start: 03/08/20 09:59 Freq: Status: Active Protocol: Document 03/08/20 10:00 CGR (Rec: 03/08/20 10:15 CGR [email or web address]) OT-Instrumental Activities of Daily Living Deficits IADL Deficits Identified Deficits Home Safety Awareness Awareness of Need for Assistance at Home Good Awareness Ability to Problem Solve Emergency Able to Problem Solve Situations Medication Management Medication Management No Deficits Identified Money Management Money Management No Deficits Identified Meal Preparation Meal Preparation Caregiver Provides Assist Eye Dropper Assembler Eye Dropper Assembler No Deficits Identified Driving Driving Comments 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 M6 OT- IP Functional Cognition Start: 03/08/20 09:59 Freq: Status: Active Protocol: Document 03/08/20 10:00 CGR (Rec: 03/08/20 10:15 CGR [email or web address]) Cognitive Factors Limiting Selfcare Function Cognitive Ability Level of Alertness Alert Patient Orientation Name,Age,Birthday,Month,Year, Day of Week,Place,Situation Attention Span Ability Capable of Focused Attention, Capable of Sustained Attention Ability to Follow Commands Able to Follow Multi-Step Commands Memory Description No Deficits Noted Safety Awareness No Deficits Noted Problem Solving Ability No deficits Noted OT- Vision and Hearing OT- Hearing Assessment OT- Hearing Assessment WFL OT- Vision Assessment Vision History Cataracts Visual Acuity WFL Visual Attentiveness WFL Occular Pursuits WFL Visual Convergence WFL Vision Assessment Comments Pt states hx of dry eyes and cateract sx M7 OT- IP Mobility and Balance Start: 03/08/20 09:59 Freq: Status: Active Protocol: Document 03/08/20 10:00 CGR (Rec: 03/08/20 10:15 CGR [email or web address]) OT- Bed Mobility Assessment Rolling Type of Rolling Roll to Right Level of Assistance Standby Assistance,Head of Bed Elevated Supine to Sit Supine to Sit Assist Standby Assistance,Head of Bed Elevated Scooting Scooting to Edge of Bed Standby Assistance,Head of Bed Elevated OT-Transfer Assessment Sit to and From Stand Sit to and from Stand Contact Guard Assistance Transfers Transfer Ability Standby Assistance Technique Transfer Destination Bed,Chair,Toilet Transfer Technique Stand Step Pivot Devices Transfer Assistive Devices Gait Belt Comments Mobility Comments Pt ambulated to chair then agreeable to go to the toilet and perform self care standing at sink. Pt mobilized in the room without AD but reaching for furniture for support. Pt would benefit from use of DME per P.T. recommendation. OT- Gait Assessment Gait Gait Assistance Required: Standby Assistance,Contact Guard Assist Assistive Devices Assistive Device Gait Belt Comments Gait Ability Comments Pt ambulated to chair then agreeable to go to the toilet and perform self care standing at sink. Pt mobilized in the room without AD but reaching for furniture for support. Pt would benefit from use of DME per P.T. recommendation. OT- Balance Assessment Sitting Balance and Reactions Static Sitting Balance Ability Good Dynamic Sitting Balance Ability Good M8 OT- IP Objective Assessments Start: 03/08/20 09:59 Freq: Status: Active Protocol: Document 03/08/20 10:00 CGR (Rec: 03/08/20 10:15 CGR [email or web address]) OT Gross Range of Motion Upper Extremity Range of Motion Assessment Within Functional Limits OT Strength Upper Extremity Strength Assessment Within Functional Limits Comments Strength Comments 4-/5 OT- Coordination Assessment Upper Extremity Finger to Nose Test Within Functional Limits Finger Tapping Test Within Functional Limits OT-Muscle Tone Assessment Muscle Tone WNL Yes OT Sensation Assessment Comments Summary Comments no deficits noted Edema Edema Absent M9 OT- IP Assessment and Plan Start: 03/08/20 09:59 Freq: Status: Active Protocol: Document 03/08/20 10:00 CGR (Rec: 03/08/20 10:15 CGR [email or web address]) OT Summary Assessment and Plan Potential Rehabilitation Potential Excellent Analytic Complexity at Evaluation Low Summary OT Impairments Pain,Strength,Balance, Functional Mobility,Grooming, Dressing,Toileting,Bathing, Toilet Transfers,Shower Transfers,Activity Tolerance Progress Towards Goals Progressing Toward Goals Assessment Summary Pt presents as a low complexity evaluation. Pt appears with weakness d/t medical complications. Pt agreeable to therapy and will continue to benefit from ADLs while hospitalized. Pt is likley to progress to be safe for d/c home. Goals Self-Feeding Goal Independent Grooming Goal Independent Dressing Goal Independent,Stain Applicator,Sock Aid Toileting Goal Independent Bathing Goal Independent Toilet Transfer Goal Independent Shower Transfer Goal Independent Frequency of Treatment Frequency Of Treatment Once a Day Treatment Plan OT Treatment Plan ADL Training,Functional Mobility,Therapeutic Exercises ,Discharge Planning Other Treatment Recommendations and Next UE therex, shower Treatment Focus Discharge Recommendations OT Discharge Recommendations Home Home Equipment Needs None at this time Transportation Needs at Discharge Private Vehicle
--- NOTE | 2020-03-08 09:50 | P.PN_ITS ---
Subjective Subjective Date Patient Seen: 03/08/20 Time Patient Seen: 10:02 Interval history: She is alert and in no apparent distress but refuses to move because of back pain. She says this is chronic. She is also bothered by ongoing nausea. Within an hour of me seeing her she gets up and walks around the room with physical therapy, so it could have been a timing issue. Her chest x-ray formal reading suggest a left lung infiltrate which was not noted on the initial ED evaluation. Her urinalysis is suspicious but not diagnostic with only 1-5 WBC present despite microscopic hematuria noted. The white blood count has dropped to 15.9. Her baseline is apparently a walker and occasional wheelchair use in her own room at the assisted living facility. Exam Vital Signs (past 8 hours): - 03/08/20 02:26 03/08/20 05:47 03/08/20 08:23 Temperature 98.2 F 97.9 F 98.5 F Pulse Rate 93 H 89 86 Respiratory Rate 18 24 18 Blood Pressure 98/49 L 143/60 H 129/55 L Pulse Oximetry 94 98 97 Oxygen Delivery Method Nasal Cannula Oxygen Flow Rate 1 Narrative Exam Narrative: She is alert and in no apparent distress but refuses to move because of back pain. Heart is regular rate and rhythm without murmur. Lungs are clear to auscultation bilaterally. There is no ankle edema. Objective Labs Result Diagrams: 03/08/20 06:58 03/08/20 06:58 Labs: Laboratory Results - last 24 hr 03/07/20 03/07/20 03/07/20 22:10 23:25 23:25 WBC 17.7 H RBC 4.58 Hgb 12.6 Hct 38.9 MCV 84.8 MCH 27.6 MCHC 32.5 RDW 17.5 H Plt Count 404 H Neut % (Auto) 86.3 H Lymph % (Auto) 6.3 L Davidson % (Auto) 5.5 Eos % (Auto) 1.3 L Baso % (Auto) 0.6 Neut # (Auto) 33550 H Lymph # (Auto) 1100 Davidson # (Auto) 1000 H Eos # (Auto) 200 Baso # (Auto) 100 Sodium 122 L Potassium 4.2 Chloride 87 L Carbon Dioxide 27 BUN 4 L Creatinine 0.57 Estimated GFR > 60.0 BUN/Creatinine Ratio 7.0 Glucose 114 H Lactate 1.2 Calcium 8.6 Phosphorus Magnesium Procalcitonin TSH Free T4 Urine Color Urine Appearance Urine pH Ur Specific [place] Urine Protein Urine Glucose (UA) Urine Ketones Urine Occult Blood Urine Nitrate Urine Bilirubin Urine Urobilinogen Ur Leukocyte Esterase Urine RBC Urine WBC Ur Squamous Epith Cells Urine Bacteria Ur Culture Indicated? 03/07/20 03/07/20 03/08/20 23:25 23:25 02:13 WBC RBC Hgb Hct MCV MCH MCHC RDW Plt Count Neut % (Auto) Lymph % (Auto) Davidson % (Auto) Eos % (Auto) Baso % (Auto) Neut # (Auto) Lymph # (Auto) Davidson # (Auto) Eos # (Auto) Baso # (Auto) Sodium Potassium Chloride Carbon Dioxide BUN Creatinine Estimated GFR BUN/Creatinine Ratio Glucose Lactate Calcium Phosphorus 2.9 Magnesium 1.7 Procalcitonin < 0.05 TSH Free T4 Urine Color Yellow Urine Appearance Slightly cloudy Urine pH 6.5 Ur Specific [place] 1.010 Urine Protein Negative Urine Glucose (UA) Negative Urine Ketones Negative Urine Occult Blood 3+ H Urine Nitrate Negative Urine Bilirubin Negative Urine Urobilinogen 0.2 Ur Leukocyte Esterase 1+ H Urine RBC 1-5/hpf Urine WBC 1-5/hpf Ur Squamous Epith Cells 1-5 /hpf Urine Bacteria Many (>30) H Ur Culture Indicated? Specimen cultured 03/08/20 03/08/20 03/08/20 06:58 06:58 06:58 WBC 15.9 H RBC 4.16 Hgb 11.5 L Hct 35.4 L MCV 85.0 MCH 27.5 MCHC 32.4 RDW 16.9 H Plt Count 357 Neut % (Auto) 85.9 H Lymph % (Auto) 6.3 L Davidson % (Auto) 6.5 Eos % (Auto) 0.8 L Baso % (Auto) 0.5 Neut # (Auto) 41343 H Lymph # (Auto) 1000 L Davidson # (Auto) 1000 H Eos # (Auto) 100 Baso # (Auto) 100 Sodium 122 L Potassium 3.9 Chloride 93 L Carbon Dioxide 23 BUN 4 L Creatinine 0.52 Estimated GFR > 60.0 BUN/Creatinine Ratio 7.7 Glucose 111 H Lactate Calcium 8.1 L Phosphorus Magnesium Procalcitonin TSH 5.01 H Free T4 1.69 Urine Color Urine Appearance Urine pH Ur Specific [place] Urine Protein Urine Glucose (UA) Urine Ketones Urine Occult Blood Urine Nitrate Urine Bilirubin Urine Urobilinogen Ur Leukocyte Esterase Urine RBC Urine WBC Ur Squamous Epith Cells Urine Bacteria Ur Culture Indicated? Assessment & Plan Assessment & Plan narrative: This is a 75-year-old female patient who who was seen in the ER once the day before admission (for a scalp laceration) and then again presented to the ER again 03/07 with progressive weakness and dizziness. Patient was found to be dehydrated with hyponatremia and with Leukocytosis related to Pneumonia and a possible UTI. 1. Hyponatremia, acute, present on admission, active. -patient presented to the ER 03/07 with generalized weakness lightheadedness and dizziness, sodium level is found to be 122 and on repeat 03/08 is 122. -patient appears dehydrated and takes Lasix 20 mg daily. Patient was seen in the ER 03/06 for a scalp laceration without noting any significant weakness or confusion. -hyponatremia is likely secondary to dehydration, patient reports questionable dietary habits of food and fluid intake. -patient received 1500 cc of normal saline in the emergency department. -continue sodium repletion at 100 cc/hour. -will recheck sodium 03/09 a.m. and adjust repletion as indicated. 2. Acute dehydration, present on admission, active. -dry mucous membranes, dry skin with poor turgor -Patient remained orthostatic after 1500 cc of IV fluid -encourage oral fluids and normal saline 100 cc/hour. -monitor I's and O's, daily weights. 3. Leukocytosis, present on admission, active -Patient remains afebrile with no complaints of pain, shortness of breath, urina ry symptoms. -patient unable to void in the ER, attempted catheterization was unsuccessful. -continue hydration. UA is abnormal 3+ blood with 1-5 WBC possibly c/w UTI. UC pending. -Radiology has interpreted the CXR as a Left sided Pneumonia -lactic acid 1.6, blood cultures have been drawn, and procalcitonin is less than .05. -continue ceftriaxone 1 g IV every 24 hours. Add Azithromycin. 4. Pulmonary fibrosis, present on admission, stable -patient remote smoker quitting in the 1960s before which she smoked up to 2 packs per day. She denies worsening of her chronic dyspnea. -chest x-ray left sided infiltrate, no cough or wheezing. Patient maintains stable saturation 93% on room air. -respiratory therapy following -incentive spirometry every 2 hours while awake. -supplemental oxygen as needed to maintain oxygen greater than 90% 5. Paroxysmal atrial fibrillation, chronic, in sinus rhythm, stable. -patient denies complaints of chest pain or palpitations -12 lead EKG is sinus rhythm with a ventricular rate of 80, first-degree AV block, without ectopy and left axis shift. -potassium is 4.2, checked magnesium level. -continue home medication of metoprolol 50 mg twice daily. -continue anticoagulation with Eliquis 5 mg twice daily. 6. Essential hypertension, chronic, active -patient presents with elevated blood pressure 185/77 improved to 141/77 while in the ER and then 98/49 on admission to the floor.. -continue holding patient's antihypertensives including amlodipine 5 mg daily and Lasix 20 mg daily. Will continue metoprolol for cardiac rhythm management. -will continue to follow blood pressures closely. 7. Diabetes type 2, diet controlled, chronic, stable. -blood sugars 114 on admission labs. -medium carbohydrate diet. 8. Acquired hypothyroidism, present on admission, stable -will continue home regimen of levothyroxine 75 mcg daily. -TSH 5.01 with reflex to T4 1.69. Consider increasing Levothyroxine dose. 9. Dyslipidemia, chronic, present on admission, stable. -continue patient's home regimen and pravastatin 40 mg daily at bedtime. 10. Left sided Pneumonia -Azithromycin and Ceftriaxone IV VTE prophylaxis: SCDs, anticoagulated on Eliquis. IV fluid: Normal saline 100 cc per. Diet: Medium constant carbohydrate diet. Code status: FULL CODE Quality VTE Deep Vein Thrombosis/Pulmonary Embolism Present on Admission: No
--- NOTE | 2020-03-08 10:00 | PT.IIE ---
Surgical History (Last Updated 03/08/20 @ 02:39 by VIRAJ Ma) History of major abdominal surgery (Acute) S/P total hip arthroplasty (Acute) S/P total knee arthroplasty (Acute) Medical History (Last Updated 03/08/20 @ 02:39 by VIRAJ Ma) Diabetes mellitus type 2, diet-controlled (Acute) Gout (Acute) History of pancreatic cancer (Inactive) Hyperlipidemia (Acute) Hypertension (Acute) Hypothyroid (Acute) Osteoarthritis (Acute) Osteoporosis (Acute) Pancreatitis (Acute) Paroxysmal atrial fibrillation (Acute) Pulmonary fibrosis (Acute) Syncope (Chronic) Syncope and collapse (Acute) Physical Therapy Inpatient Evaluation/Re-Eval M1 PT/OT-IP Prior Functional Status Start: 03/08/20 09:59 Freq: NEEDED Status: Active Protocol: Document 03/08/20 10:00 CGR (Rec: 03/08/20 10:15 CGR [id number]) Medical Review Prior Functional Status Communication Pt is an effective verbal communicator. Mobility and Gait Pt was IND without AD in her apt but used a 4WW for mobility outside of her apt. Activities of Daily Living and IADL's Pt was IND for all ADLs and IADLs, Pt states that she no longer wears socks because they are too hard to get on and she doesn't like the way they feel. Social History Household Members none Living Arrangements Half-Way Facility Number of Floors (Floors) One Floor Number of Stairs To Enter/Railing? 0 Home Environment Standard Height Toilet,Walk in Shower,Built-In Shower Seat Home Equipment Four Wheel Walker,Straight Cane,Manual Wheelchair, Hospital Bed,Grab Bars Near Toilet,Grab Bars In Shower Employment Status Retired Additional Social History Comment Pt states she does not have family near by M1 PT/OT-IP Prior Functional Status Start: 03/08/20 11:42 Freq: NEEDED Status: Active Protocol: Document 03/08/20 10:00 AB (Rec: 03/08/20 12:13 AB [id number]) Medical Review Prior Functional Status Medical History Reviewed Yes Communication able to make needs known Mobility and Gait pt stated that she is modified independent with ambulation without AD in her room but uses a 4WW when she has to go outside. stated that she is not able to walk far due to SOB and has to sit down when she has to walk from her room to the dining room Activities of Daily Living and IADL's Per OT's note: Pt was IND for all ADLs and IADLs, Pt states that she no longer wears socks because they are too hard to get on and she doesn't like the way they feel. Social History Household Members none Living Arrangements Half-Way Facility Number of Floors (Floors) One Floor Number of Stairs To Enter/Railing? pt lives at [facility] Home Environment Standard Height Toilet,Walk in Shower,Built-In Shower Seat Home Equipment Four Wheel Walker,Straight Cane,Manual Wheelchair,Hand Held Shower,Hospital Bed,Grab Bars Near Toilet,Grab Bars In Shower Employment Status Retired Additional Social History Comment pt stated that she has a call button at [facility] to use when she needs assistance . stated that she is not able to take a shower for~ 1 week due to weakness pt also has an adjustable bed stated that she uses O2 as needed M2 PT-IP Current Condition Start: 03/08/20 11:42 Freq: NEEDED Status: Active Protocol: Document 03/08/20 10:00 AB (Rec: 03/08/20 12:13 AB [id number]) Physical Therapy Current Condition Current Condition Evaluation Date 03/08/20 Treatment Diagnosis acute dehydration/hyponatremia ; difficulty in walking Onset Date 03/08/20 Precautions Other Precautions falls M3 PT-IP Subjective Start: 03/08/20 11:42 Freq: NEEDED Status: Active Protocol: Document 03/08/20 10:00 AB (Rec: 03/08/20 12:13 AB [id number]) Subjective Physical Therapy Visit Type Type Initial Evaluation Visit Start Time 10:00 Visit Stop Time 10:26 Total Visit Minutes 26 Number of BREAKER TENDER Visits 0 Physical Therapy Visit Comments Patient Comments pt agreeable to do PT Therapy Pain Assessment Pain When Pain Assessed At Rest Pain Present Pain Present Pain Reported Location Neck Intensity 5 Scale Used Numeric (1 - 10) Pain Management Techniques Modification of Treatment,Re- positioning,Timing of Activity with Medications Back Intensity 5 Scale Used Numeric (1 - 10) M4 PT-IP Mobility and Gait Start: 03/08/20 11:42 Freq: NEEDED Status: Active Protocol: Document 03/08/20 10:00 AB (Rec: 03/08/20 12:13 AB [id number]) PT-Bed Mobility Assessment Supine to Sit Supine to Sit Standby Assistance Sit to Supine Sit to Supine Standby Assistance PT-Transfer Assessment Sit to and From Stand Sit to and from Stand Contact Guard Assistance, Minimal Assistance,1 Person Assistance,Use of Upper Extremities Equipment Transfer Assistive Device Gait Belt,Front Wheeled Walker Orthotic/Prosthetic Devices or Brace: No Transfers Transfer Destination Bed Transfer Technique ambulated using FWW Transfer Ability Level of Assist Minimal Assistance,1 Person Assistance Comments Mobility Comments pt found sitting on chair and agreeable to do PT. pt completed sit to stand CGA to min A and cues. O2 sat at 90- 94%. pt ambulated in room ~ 8 ft and has to stopped and stated that she is SOB and has to sit down. pt was able to walk another 2 ft to the bed using FWW min A. O2 sat after ambulation 88 to 91%. pt ambulated again ~ 12 ft towards other side of the bed using FWW min A. completed bed mobility supine <>sit SBA. pt requested to stay in bed. positioned in bed. call light and table placed within reach. Gait Assessment Gait Gait Assistance Required: Minimum Assistance,1 Person Assist Distance (Feet) 12 Able to Maintain Weight Bearing Status Yes During Gait Assistive Devices Assistive Device Gait Belt,Front Wheeled Walker Orthotic/Prosthetic Devices or Brace: No Gait Deviations General Gait Pattern Antalgic,Decreased Stride Length,Decreased Feet Clearance,Flexed Trunk,Lateral Trunk Lean,Step-to Gait Factors Limiting Gait Function Factors Limiting Gait Function Decreased Activity Tolerance, Decreased Strength,Pain,Poor Balance,Respiratory Distress Comments Gait Comments pls refer to mobility section for details PT-Balance Assessment Sitting Balance and Reactions Static Sitting Balance Ability Good Dynamic Sitting Balance Ability Good Standing Balance and Reactions Static Standing Balance Ability Fair Dynamic Standing Balance Ability Fair Device Used FWW M5 PT-IP Objective Assessments Start: 03/08/20 11:42 Freq: NEEDED Status: Active Protocol: Document 03/08/20 10:00 AB (Rec: 03/08/20 12:13 AB [id number]) Orientation Orientation/Cognition Level of Alertness Alert Orientation Name,Place,Situation Memory Description No Deficits Noted Gross Range of Motion Lower Extremity ROM Assessment Within Functional Limits Strength Lower Extremity Strength Assessment Within Functional Limits Sensation Assessment Sensation Gross Sensation WNL Muscle Tone Muscle Tone WNL Yes M6 PT-IP Treatment Start: 03/08/20 11:42 Freq: NEEDED Status: Active Protocol: Document 03/08/20 10:00 AB (Rec: 03/08/20 12:13 AB [id number]) Physical Therapy Treatment Education Education Provided Safety M7 PT-IP Assessment and Plan Start: 03/08/20 11:42 Freq: NEEDED Status: Active Protocol: Document 03/08/20 10:00 AB (Rec: 03/08/20 12:13 AB [id number]) PT Summary Assessment and Plan Potential Rehabilitation Potential Good Status of Condition at Evaluation Stable Summary Impairments Pain,ROM,Strength,Balance,Bed Mobility,Transfers,Gait, Activity Tolerance Assessment Summary pt requiring CGA to min A with mobility but unable to ambulate much due to decrease activity tolerance and generalized weakness. d/c plan depending on progress and may require SNF at this time. If pt goes home, pt will require assistance and homehealth services. will continue to assess. Goals Bed Mobility Goal Independent Transfer Goal Independent Gait Goal Standby Assistance,Front Wheel Walker,Four Wheel Walker Gait Distance 75 Days to Meet Goals 5 Frequency of Treatment Frequency Of Treatment Once a Day Treatment Plan Physical Therapy Treatment Plan Bed Mobility Training,Transfer Training,Gait Training, Therapeutic Exercise,Balance Retraining,Discharge Planning, Neuromuscular Re-ed, Coordination Retraining Recommendations To Nursing Amount of Assist Needed 1 Person Assist Discharge Recommendations PT Discharge Recommendations Home with Assistance,SNF Rehab Other Discharge Recommendations depending on progress: home with assistance/HHPT vs SNF Equipment Needed for Home Before FWW if not safe with 4WW Discharge Transportation Needs at Discharge Private Vehicle,Wheelchair/ Cabulance
[2020-03-08] MEDS: AZITHROMYCIN 500 MG in DEXTROSE 5% IN WATER 250 ML IV (10:33)
--- NOTE | 2020-03-08 11:16 | DIET.PN ---
Dietary Progress Note Assessment: 75y F recently seen in ER s/p fall resulting in scalp laceration admitted for hyponatremia, dehydration and nausea. Referred to nutrition for low kong score and hyponatremia. Pt has been wt stable past 2y per records. Pt lives at [facility], experiencing isolation as residents are to stay in their apartments. One meal per day is delivered (dinner) from the facility. Pt does not have local contacts, nearest is sister living near [place], [place]. Pt reports having little food in home, has some club soda. Pt usually a national van truck driver but has been experiencing new blurry vision so she is not comfortable driving, also, her car won't start. Pt unable to get to store to shop and has no one to do this for her. She does have money for food, however. Pt uses Urmila filter to filter water but has not been feeling well and has reduced appetite and thirst so not refilling pitcher as much as usual. Pt consuming one meal per day as is available to her. Pt reports moderate reflux triggered by big meals. Not usually picky eater. HT: 152.4cm WT: 59.5kg UBW: 60kg BMI: 25.6 Labs: Na 122 L MNA: 11 at risk for malnutrition Kong: 13 at risk for skin breakdown Nutrition Diagnosis: 1. dehydration r/t reduced perceived hunger and thirst and situational food insecurity aeb pt admitted Na+ 122 L, poor skin turgor, pt endorses tunnel vision and light headedness when standing at home, pt fell at home several days ago lacerating scalp, pt reports little food in home and no local contacts to assist. 2. Situational food insecurity r/t stay home orders of Covid19 pandemic aeb pt reports little food in her home, receives 1 meal/d from [facility], pt's car won't start and unable to drive secondary to blurry vision so unable to procure food supplies, no local contacts to assist. Interventions: 1. Provide half portions on meal trays so not overwhelming to pt per pt request. 2. Collaborate c CM to set up 1meal/d from [employer] so pt has 2 meals delivered daily. 3. Educated pt on sx of dehydration, encouraged increased water and electrolyte intake at home. Diet Order: HH/CCD medium EER: 1300kcal, 60g PRO(1g/kg), 2L fluids Monitoring/Evaluations: POs, progress of MOW delivery
--- NOTE | 2020-03-08 12:12 | CM.DANOTE ---
DCP Assessment: EMR Reviewed: Patient is a 75 yr old female who was admitted for Dehydration and Hyponatremia. PCP is Dr Concepcion. CM/RN met with patient at the bedside and explained role. Patient plans to go back to [facility] at D/C but since she has new infiltrates on her chest Xray they would like COvid R/O done prior to her return to their facility. CM/Rn notified patients nurse and Dr Goncalves who placed order for Covid-19 testing. patient then placed in isolation pending covid R/O. CM/Rn talked with dietary and patient is only eating one meal a day currently. [facility] only covers her dinner meal and patient states she doesn't have food right now since she doesn't drive and not able to get to the store. CM/Rn spoke with patient about meals on wheels and she stated she is not interested in having food delivered to her from them. Cm spoke with her a little more at length and she stated she will think about it. CM/RN gave patient information about meals on wheels and will follow up with patient tomorrow and determine if Meals on wheels needs to be set up. Itzel Hobbs RN Discharge Planning/Care Management CM Discharge Assessment Start: 03/08/20 12:10 Freq: Status: Active Protocol: Document 03/08/20 12:10 HS (Rec: 03/08/20 12:12 HS [id number]) Discharge Planning Assessment Assigned Mosaicist Itzel Hobbs RN Contact Information ramona Dai (sister) [phone] Advance Directives? No History Provided By Patient Has Patient been admitted in last 30 No days? Prior Living Arrangements Long Term Facility Comment Patient lives at [facility] Household Members none Type of transporation used prior to Relies on Others admit Facility Name Admitted From: [facility] Willing to Return to Facility? Yes Independent with ADL's Yes Is patient alert and oriented? Yes Caregiver for Another No DME Already Rented / Owned FWW / Walker,Cane Comment when needed Barriers to Discharge No Comment Pending Covid 19 R/O for going back to [facility] Whiteboard Updated in Patient Room with Yes name and ext. # of Mosaicist Review Status In Process Next Review Type Continued Stay Review
[2020-03-08] MEDS: OXYCODONE IR 5 MG TABLET 2.5 MG PO ×2 (16:39→21:08)
[2020-03-08] MEDS: PRAVASTATIN 20 MG TABLET 40 MG PO (21:08)
[2020-03-08] MEDS: CEFTRIAXONE 2 GM/50 ML FROZ.PIGGY IV (21:08)
[2020-03-09 00:28] LABS: COVID19 Sendout Not Detected (Not Detect)
[2020-03-09] MEDS: NYSTATIN POWDER 30 GM 1 APPLIC TOP ×2 (01:57→20:54)
[2020-03-09] MEDS: ACETAMINOPHEN 325 MG TABLET 650 MG PO ×3 (01:57→20:52)
[2020-03-09] MEDS: SODIUM CHLORIDE 0.9% 1,000 ML 100 ML IV (03:54)
[2020-03-09 04:49] VITALS: BP 142/66; PULSE 80; RESP 18; TEMP 36.8; O2SAT 91
[2020-03-09 06:08] LABS: Add Manual Diff / Slide Review NO; Basophils Absolute Auto 100 /uL (0-100); Basophils Percent Auto 1.1 % (0-2); Eosinophils Absolute Auto 700 /uL (0-450); Eosinophils Percent Auto 5.3 % (2-4); Hematocrit 34.8 % (36-46); Hemoglobin 11.1 g/dL (12.0-16.0); Lymphocytes Absolute Auto 1200 /uL (1100-4500); Mean Corpuscular HGB Conc 31.8 % (30-36); Mean Corpuscular Hemoglobin 27.2 PG (26-34); Mean Corpuscular Volume 85.6 fL (80-100); Monocytes Absolute Auto 800 /uL (0-900); Monocytes Percent Auto 6.5 % (3-14); Neutrophils Absolute Auto 9600 /uL (1500-7000); Neutrophils Percent Auto 77.1 % (50-75); Platelet Count 336 X10^3/uL (150-400); Red Blood Cell Count 4.06 X10^6/uL (4.0-5.2); Red Cell Distribution Width 17.7 % (11.6-14.8); White Blood Cell Count 12.4 X10^3/uL (4.5-11.0)
[2020-03-09] MEDS: LEVOTHYROXINE 75 MCG TABLET PO (06:11)
[2020-03-09] MEDS: OXYCODONE IR 5 MG TABLET 2.5 MG PO ×2 (06:15→20:51)
[2020-03-09 06:18] LABS: BUN Creatinine Ratio 6.6 (6-22); Blood Urea Nitrogen 4 mg/dL (7-17); Calcium 8.4 mg/dL (8.4-10.2); Carbon Dioxide 25 mmol/L (22-32); Chloride 97 mmol/L (98-107); Estimated Glomerular Filt Rate > 60.0 mL/min (>60); Glucose 90 mg/dL (80-110); HEMOLYSIS < 15 (0-50); Potassium 3.8 mmol/L (3.4-5.1); Sodium 127 mmol/L (137-145)
[2020-03-09 07:35] VITALS: BP 150/74; PULSE 80; RESP 16; TEMP 36.4; O2SAT 93
[2020-03-09 08:08] VITALS: O2SAT 92
--- NOTE | 2020-03-09 08:22 | P.PN_ITS ---
Subjective Subjective Date Patient Seen: 03/09/20 Time Patient Seen: 08:22 Interval history: She is generally feeling better. Her white blood count is down to 12.4 and her sodium level is up to 127. Her back pain, remarkably, seems to be better when she is walking as compared to when she is lying down. She also confirms that her nausea has improved. Her blood cultures are negative for 24 hours and her urine culture is still pending. I review with her that her chest x-ray was read as showing a probable left-sided infiltrate, but also consistent with a dropping white blood count under antibiotic treatment. She is skeptical that she has pneumonia and points out correctly that she does have pulmonary fibrosis which could look similar on x-ray. We will repeat the x-ray today to clarify and this time I will try to obtain a lateral view also. Exam Vital Signs (past 8 hours): - 03/09/20 04:49 Temperature 98.3 F Pulse Rate 80 Respiratory Rate 18 Blood Pressure 142/66 H Pulse Oximetry 91 Oxygen Delivery Method Room Air Oxygen Flow Rate 0 Narrative Exam Narrative: She is alert and oriented x3 No apparent distress Heart is regular rate and rhythm without murmur. Lungs have diffuse fine crackles There is no ankle edema Objective Labs Result Diagrams: 03/09/20 05:50 03/09/20 05:50 Labs: Laboratory Results - last 24 hr 03/08/20 03/08/20 03/09/20 06:58 12:15 05:50 WBC RBC Hgb Hct MCV MCH MCHC RDW Plt Count Neut % (Auto) Lymph % (Auto) Kay % (Auto) Eos % (Auto) Baso % (Auto) Neut # (Auto) Lymph # (Auto) Kay # (Auto) Eos # (Auto) Baso # (Auto) Sodium 127 L Potassium 3.8 Chloride 97 L Carbon Dioxide 25 BUN 4 L Creatinine 0.61 Estimated GFR > 60.0 BUN/Creatinine Ratio 6.6 Glucose 90 Calcium 8.4 TSH 5.01 H Free T4 1.69 COVID-19 PCR Not detected 03/09/20 05:50 WBC 12.4 H RBC 4.06 Hgb 11.1 L Hct 34.8 L MCV 85.6 MCH 27.2 MCHC 31.8 RDW 17.7 H Plt Count 336 Neut % (Auto) 77.1 H Lymph % (Auto) 10.0 L Kay % (Auto) 6.5 Eos % (Auto) 5.3 H Baso % (Auto) 1.1 Neut # (Auto) 9600 H Lymph # (Auto) 1200 Kay # (Auto) 800 Eos # (Auto) 700 H Baso # (Auto) 100 Sodium Potassium Chloride Carbon Dioxide BUN Creatinine Estimated GFR BUN/Creatinine Ratio Glucose Calcium TSH Free T4 COVID-19 PCR Assessment & Plan Assessment & Plan narrative: This is a 75-year-old female patient who who was seen in the ER once the day [facility] admission (for a scalp laceration) and then again presented to the ER again 03/07 with progressive weakness and dizziness. Patient was found to be dehydrated with hyponatremia and with Leukocytosis related to Pneumonia and a possible UTI. 1. Hyponatremia, acute, present on admission, active. -patient presented to the ER 03/07 with generalized weakness lightheadedness and dizziness, sodium level is found to be 122 and on repeat 03/08 is 122. Up to 127 on 03/09. -patient appears dehydrated and takes Lasix 20 mg daily. Patient was seen in the ER 03/06 for a scalp laceration without noting any significant weakness or confusion. -hyponatremia is likely secondary to dehydration, patient reports questionable dietary habits of food and fluid intake. -patient received 1500 cc of normal saline in the emergency department. -stop IVF 03/09 -will recheck sodium 03/10 a.m. 2. Acute dehydration, present on admission, active. -dry mucous membranes, dry skin with poor turgor -Patient remained orthostatic after 1500 cc of IV fluid -encourage oral fluids and stopping normal saline 100 cc/hour on 03/09. -monitor I's and O's, daily weights. 3. Leukocytosis, present on admission, active -Covid 19 negative on 03/08 -Patient remains afebrile with no complaints of pain, shortness of breath, urinary symptoms. -patient unable to void in the ER, attempted catheterization was unsuccessful. -continue hydration. UA is abnormal 3+ blood with 1-5 WBC possibly c/w UTI. UC still pending 03/09. -Radiology has interpreted the CXR as a Left sided Pneumonia. Repeat CXR 03/09. -lactic acid 1.6, blood cultures have been drawn, and procalcitonin is less than .05. -continue ceftriaxone 1 g IV every 24 hours. Added Azithromycin 03/09. -WBC down to 12.4 on 03/09. 4. Pulmonary fibrosis, present on admission, stable -patient remote smoker quitting in the 1960s before which she smoked up to 2 packs per day. She denies worsening of her chronic dyspnea. -chest x-ray left sided infiltrate, no cough or wheezing. Patient maintains stable saturation 93% on room air. -respiratory therapy following -incentive spirometry every 2 hours while awake. -supplemental oxygen as needed to maintain oxygen greater than 90% 5. Paroxysmal atrial fibrillation, chronic, in sinus rhythm, stable. -patient denies complaints of chest pain or palpitations -12 lead EKG is sinus rhythm with a ventricular rate of 80, first-degree AV b lock, without ectopy and left axis shift. -potassium is 4.2, checked magnesium level. -continue home medication of metoprolol 50 mg twice daily. -continue anticoagulation with Eliquis 5 mg twice daily. 6. Essential hypertension, chronic, active -patient presents with elevated blood pressure 185/77 improved to 141/77 while in the ER and then 98/49 on admission to the floor.. -continue holding Lasix 20 mg daily. Will continue metoprolol for cardiac rhythm management. Resume Amlodipine 03/09. -will continue to follow blood pressures closely. 7. Diabetes type 2, diet controlled, chronic, stable. -blood sugars 114 on admission labs. -medium carbohydrate diet. 8. Acquired hypothyroidism, present on admission, stable -will continue home regimen of levothyroxine 75 mcg daily. -TSH 5.01 with reflex to T4 1.69. Consider increasing Levothyroxine dose. 9. Dyslipidemia, chronic, present on admission, stable. -continue patient's home regimen and pravastatin 40 mg daily at bedtime. 10. Left sided Pneumonia -WBC down to 12.4 -Repeat CXR 03/09 -Azithromycin and Ceftriaxone IV VTE prophylaxis: SCDs, anticoagulated on Eliquis. IV fluid: stopped 03/09 Diet: Medium constant carbohydrate diet. Code status: FULL CODE Disposition: SS will contact [facility] for in-person evaluation 03/10 and may need SNF if not appropriate for return to Assisted Living. Quality VTE Deep Vein Thrombosis/Pulmonary Embolism Present on Admission: No
[2020-03-09] MEDS: APIXABAN 5 MG TABLET PO ×2 (09:56→20:51)
[2020-03-09] MEDS: METOPROLOL IR 50 MG TABLET PO ×2 (09:57→20:51)
[2020-03-09] MEDS: AZITHROMYCIN 500 MG in DEXTROSE 5% IN WATER 250 ML IV (09:58)
--- NOTE | 2020-03-09 10:08 | DI.RAD.S_ITS ---
PROCEDURE: XR CHEST 2V INDICATIONS: L Pneumonia TECHNIQUE: 2 views of the chest were acquired. COMPARISON: [facility], CR, XR CHEST 1V, 03/07/2020, 23:03. FINDINGS: Surgical changes and devices: None. Lungs and pleura: Diffuse interstitial prominence is identified throughout the lungs. Increased density throughout the lungs is also identified, predominantly seen within the left lung. There is a nodular density along the pleura of the lateral margin of the left mid lung, which is more prominent on the current exam. No large effusion or definite pneumothorax is evident. Mediastinum: Mediastinal contours are normal. The heart probably is mildly enlarged, but not well characterized. Bones and chest wall: No suspicious bony abnormalities. Soft tissues appear unremarkable. IMPRESSION: 1. Increasing density at the left lung is suggestive of pneumonia. 2. Chronic interstitial changes of the lungs appear present. 3. Possible developing nodule within the lateral left lung. A followup chest radiograph in 3-4 weeks is recommended to document resolution. Dictated by: Leroy Lee M.D. on 03/09/2020 at 9:52 Approved by: Leroy Lee M.D. on 03/09/2020 at 9:55
--- NOTE | 2020-03-09 10:26 | CM.DPC ---
DCP/continued: Reviewed chart. COVID test to date negative. Provider indicates that patient most likely medically stable for d/c within the next 24-48hrs. Left vm with [facility] at [facility] informing her of above. Therapy following and current recommendation is to return to [facility]. They are seeing her again today. P: Anticipate home when medically stable. ANAND Lopez
--- NOTE | 2020-03-09 10:32 | PC.NURSE ---
Pt alert and oriented, offers no overt c/o asking appropriate questions. Pt up to x-ray via w/c. IV intact.
[2020-03-09 11:00] VITALS: BP 144/70; PULSE 78; RESP 16; TEMP 36.6; O2SAT 94
--- NOTE | 2020-03-09 11:30 | PC.NURSE ---
Addendum entered by Rg Obando R.N. 03/09/20 12:18: continues up in chair for the present time having lunch. Addendum entered by Rg Obando R.N. 03/09/20 12:15: continues to progress, did well with PT in the room though dropped her O2 for a short period. Pt states she does use O2 at home when she needs it. Original Note: Pt alert oriented, offers noovert c/o pain. asking appropriate question and voices concerns easily. up to x ray with tech.
[2020-03-09] MEDS: allopurinoL 300 MG TABLET PO (12:03)
--- NOTE | 2020-03-09 12:24 | PT.IPTN ---
Current Diagnoses Hypo-osmolality and hyponatremia (03/08/20) Physical Therapy Treatment Note M2 PT-IP Current Condition Start: 03/08/20 11:42 Freq: NEEDED Status: Active Protocol: Document 03/08/20 10:00 AB (Rec: 03/08/20 12:13 AB [id number]) Physical Therapy Current Condition Current Condition Evaluation Date 03/08/20 Treatment Diagnosis acute dehydration/hyponatremia ; difficulty in walking Onset Date 03/08/20 Precautions Other Precautions falls M3 PT-IP Subjective Start: 03/08/20 11:42 Freq: NEEDED Status: Active Protocol: Document 03/09/20 12:16 LR (Rec: 03/09/20 12:24 [facility] [id number]) Subjective Physical Therapy Visit Type Type Treatment Note Visit Start Time 11:37 Visit Stop Time 11:56 Total Visit Minutes 19 Number of FUR TRIMMER Visits 0 Physical Therapy Visit Comments Patient Comments Pt reports she is agreeable to get up Patient Goals return home M4 PT-IP Mobility and Gait Start: 03/08/20 11:42 Freq: NEEDED Status: Active Protocol: Document 03/09/20 12:16 [facility] (Rec: 03/09/20 12:24 [facility] [id number]) PT-Bed Mobility Assessment Supine to Sit Supine to Sit Independent Scooting Scooting to Edge of Bed Standby Assistance PT-Transfer Assessment Sit to and From Stand Sit to and from Stand Standby Assistance,Use of Upper Extremities Equipment Transfer Assistive Device 4 Wheeled Walker Orthotic/Prosthetic Devices or Brace: No Transfers Transfer Destination Bed Transfer Technique Stand Step Pivot Transfer Ability Level of Assist Standby Assistance Comments Mobility Comments Pt stood and transfered to chair where O2 monitor was placed and 4WW was adjusted. O2 at start of treatment was 90%. She then stood from chair SBA and amb into hallway about 35ft and O2 was measured at 94% on RA. Pt then amb back to room SBA with 4WW and sat in chair reporting now feeling SOB. Pt O2 dropped to 84% and took about 1 min of cueing for breathing before O2 increased over 90%. Gait Assessment Gait Gait Assistance Required: Standby Assistance Distance (Feet) 70 Able to Maintain Weight Bearing Status Yes During Gait Assistive Devices Assistive Device Gait Belt,4 Wheeled Walker Orthotic/Prosthetic Devices or Brace: No Gait Deviations General Gait Pattern Flexed Trunk Factors Limiting Gait Function Factors Limiting Gait Function Decreased Activity Tolerance, Poor Balance,Respiratory Distress Comments Gait Comments Pt stood from chair a 2nd time and attempted to amb without AD but was only able to take one small step with CGA and felt too unsteady so did not do more. M5 PT-IP Objective Assessments Start: 03/08/20 11:42 Freq: NEEDED Status: Active Protocol: Document 03/08/20 10:00 AB (Rec: 03/08/20 12:13 AB [id number]) Orientation Orientation/Cognition Level of Alertness Alert Orientation Name,Place,Situation Memory Description No Deficits Noted Gross Range of Motion Lower Extremity ROM Assessment Within Functional Limits Strength Lower Extremity Strength Assessment Within Functional Limits Sensation Assessment Sensation Gross Sensation WNL Muscle Tone Muscle Tone WNL Yes M6 PT-IP Treatment Start: 03/08/20 11:42 Freq: NEEDED Status: Active Protocol: Document 03/09/20 12:16 [facility] (Rec: 03/09/20 12:24 [facility] [id number]) Physical Therapy Treatment Other Treatments Other Treatment Performed edu on need to use walker in room when returning home. M7 PT-IP Assessment and Plan Start: 03/08/20 11:42 Freq: NEEDED Status: Active Protocol: Document 03/09/20 12:16 [facility] (Rec: 03/09/20 12:24 [facility] [id number]) PT Summary Assessment and Plan Potential Rehabilitation Potential Good Status of Condition at Evaluation Stable Summary Impairments Pain,ROM,Strength,Balance,Bed Mobility,Transfers,Gait, Activity Tolerance Assessment Summary pt did very well with her mobility overall today. She was able to amb further today before O2 dropped and was able to use 4WW safely. She is unable to walk significant distances without O2 dropping though which is a concern for ADLs. She was steadyw ith 4WW but not withotu a device so was educated to use 4WW in room and pt agreeable but noted she also has a cane. Goals Bed Mobility Goal Independent Transfer Goal Independent Gait Goal Standby Assistance,Front Wheel Walker,Four Wheel Walker Gait Distance 75 Days to Meet Goals 5 Frequency of Treatment Frequency Of Treatment Once a Day Treatment Plan Physical Therapy Treatment Plan Bed Mobility Training,Transfer Training,Gait Training, Therapeutic Exercise,Balance Retraining,Discharge Planning, Neuromuscular Re-ed, Coordination Retraining Other Recommendations and Next Treatment amb with cane, amb while Focus managing O2 cording, working on breathing during amb Recommendations To Nursing Amount of Assist Needed 1 Person Assist Discharge Recommendations PT Discharge Recommendations Home with Assistance,Home Health
--- NOTE | 2020-03-09 13:16 | CM.DPNOTE ---
DCP/continued: Reviewed chart. Received verbal referral from therapy today that patient would benefit from HH after discharge. Met with patient today. She is alert and oriented and reports that she does not feel that she needs HH. Patient reports going through this before and being very capable of following exercise instructions. Patient reports that she walked the hallway with Dr. Hobbs earlier today. Notified patient that CM team would check back prior to d/c if something changes. Patient appreciative. P: Home when stable. Patient hopeful to d/c tomorrow. ANAND Lopez
[2020-03-09 15:35] VITALS: BP 125/59; PULSE 76; RESP 18; TEMP 36.8; O2SAT 94
[2020-03-09 20:40] VITALS: BP 153/67; PULSE 72; RESP 18; TEMP 36.4
[2020-03-09] MEDS: PRAVASTATIN 20 MG TABLET 40 MG PO (20:51)
[2020-03-09] MEDS: CEFTRIAXONE 2 GM/50 ML FROZ.PIGGY IV (20:52)
[2020-03-09] MEDS: SODIUM CHLORIDE 0.9% FLUSH 10 ML IV (20:52)
[2020-03-10] VITALS: BP 145/62; PULSE 70; RESP 18; TEMP 36.6; O2SAT 96
[2020-03-10 03:20] VITALS: BP 145/85; PULSE 80; RESP 18; TEMP 36.7; O2SAT 93
[2020-03-10] MEDS: ACETAMINOPHEN 325 MG TABLET 650 MG PO ×2 (04:18→10:57)
[2020-03-10 06:16] LABS: BUN Creatinine Ratio 6.9 (6-22); Blood Urea Nitrogen 4 mg/dL (7-17); Calcium 8.5 mg/dL (8.4-10.2); Carbon Dioxide 26 mmol/L (22-32); Chloride 98 mmol/L (98-107); Estimated Glomerular Filt Rate > 60.0 mL/min (>60); Glucose 98 mg/dL (80-110); HEMOLYSIS 36 (0-50); Potassium 3.9 mmol/L (3.4-5.1); Sodium 128 mmol/L (137-145)
[2020-03-10] MEDS: LEVOTHYROXINE 75 MCG TABLET PO (06:47)
[2020-03-10 08:00] VITALS: BP 144/90; PULSE 69; RESP 18; TEMP 36.6; O2SAT 94
[2020-03-10 08:14] LABS: Magnesium 1.7 mg/dL (1.6-2.3)
[2020-03-10 08:17] LABS: Add Manual Diff / Slide Review NO; Basophils Absolute Auto 200 /uL (0-100); Basophils Percent Auto 1.4 % (0-2); Eosinophils Absolute Auto 900 /uL (0-450); Eosinophils Percent Auto 6.8 % (2-4); Hematocrit 29.8 % (36-46); Hemoglobin 9.5 g/dL (12.0-16.0); Lymphocytes Absolute Auto 1500 /uL (1100-4500); Lymphocytes Percent Auto 11.6 % (25-40); Mean Corpuscular HGB Conc 31.9 % (30-36); Mean Corpuscular Hemoglobin 27.2 PG (26-34); Mean Corpuscular Volume 85.2 fL (80-100); Monocytes Absolute Auto 900 /uL (0-900); Monocytes Percent Auto 7.3 % (3-14); Neutrophils Absolute Auto 9300 /uL (1500-7000); Neutrophils Percent Auto 72.9 % (50-75); Platelet Count 383 X10^3/uL (150-400); Red Cell Distribution Width 17.5 % (11.6-14.8); White Blood Cell Count 12.7 X10^3/uL (4.5-11.0)
[2020-03-10 08:56] LABS: Procalcitonin 3.39 ng/mL (<0.5)
[2020-03-10] MEDS: AMLODIPINE 5 MG TABLET PO (08:57)
[2020-03-10] MEDS: allopurinoL 300 MG TABLET PO (08:57)
[2020-03-10] MEDS: METOPROLOL IR 50 MG TABLET PO (08:57)
[2020-03-10] MEDS: SODIUM CHLORIDE 0.9% FLUSH 10 ML IV (08:57)
[2020-03-10] MEDS: DOCUSATE 100 MG CAPSULE PO (08:57)
[2020-03-10] MEDS: APIXABAN 5 MG TABLET PO (08:57)
--- NOTE | 2020-03-10 09:22 | P.DS_ITS ---
History of Present Illness History of Present Illness Date Patient Seen: 03/08/20 Chief complaint: Nausea Narrative: Written by Sg CALI: Ms. Michelle Quintanilla is a 75-year-old female with a history significant for pancreatic cancer status post Whipple procedure in 2013, postprocedural pancreatitis requiring extended hospitalization and ventilatory support for 4 mo nths, pulmonary fibrosis, paroxysmal atrial fibrillation, diet-controlled diabetes type 2, hypertension, hyperlipidemia, hypothyroid, gout and osteoporosis who presents to the ER tonight with increasing weakness. The patient was seen in the ER yesterday following a fall that occurred when the patient tripped on her O2 tubing. The patient sustained a scalp laceration and underwent CT scan with history anticoagulation on Eliquis. Today the patient is felt weak and lightheaded and dizzy. She continues to reside at [facility] and is normally ambulatory with a walker. She denies headache but has tenderness over her scalp laceration. She denies visual changes, nasal congestion or sore throat. She denies fevers or chills though she appears with gross motor tremors consistent with rigors that are new. Denies complaints of chest pain or palpitations with a history of paroxysmal atrial fibrillation. She has chronic exertional dyspnea and shortness of breath in uses home O2 as needed. She denies complaints of abdominal pain or nausea. No diarrhea or constipation, last bowel movement was yesterday. The patient denies urinary symptoms urgency frequency, burning or hematuria. Upon arrival to the ER the patient is afebrile with temperature 98.3?, heart rate of 82, blood pressure 185/77, respiratory rate of 20 saturating 90% on 3 L nasal cannula. A chest x-ray was obtained which stable appearing pulmonary fibrosis. Repeat CT of the head is obtained which finds chronic involutional volume loss without acute changes. On laboratory analysis she has a white count of 17.7, hemoglobin of 12.6, hematocrit 38.9 and platelets of 404. She is hyponatremic at 122 with a potassium of 4.2 chloride of 87, CO of 27 with a BUN of 4 and a creatinine of 0.2nd. Her nonfasting glucose is 114. A lactic acid is 1.2. The patient received 1.5 L of normal saline in the emergency department the patient remained profoundly orthostatic feeling dizzy upon sitting up. Attempt was made at urinary catheterization for UA sample without success. The patient was started on ceftriaxone for empiric antibiotic and the patient is admitted to the medicine service for hyponatremia, dehydration, leukocytosis. Discharge Providers Provider Date of admission: 03/08/20 00:19 Discharge Date: 03/10/20 Primary care physician: Salvador Concepcion MD Consults: 03/08/20 01:43 Consult to Dietitian, Adult Routine Comment: Reason For Exam: Reflexed from admission 03/08/20 02:05 Consult to Dietitian, Adult Routine Comment: Reason For Exam: Hyponatremia Consult to Discharge Planning Routine Comment: Consult to Occupational Therapy Evaluate & Treat Comment: Impaired mobility, generalized weakness Physician Instructions: Evaluate and treat Consult to Physical Therapy Evaluate & Treat Comment: Impaired mobility, generalized weakness Physician Instructions: Evaluate and Treat 03/08/20 02:07 Consult to Respiratory Therapy Evaluate & Treat Comment: Pulmonary fibrosis, intermittent home O2 Physician Instructions: Evaluate and treat Discharge provider: Stella Quiroga DO Summary Hospital Course Discharge Diagnosis: 1. Left lower lobe bacterial pneumonia, present on admission. Resolving. 2. Acute on chronic hyponatremia, acute portion secondary to pneumonia and deh ydration,present on admission. Resolving. 3. Pulmonary fibrosis, present on admission. Presumed stable. 4. Paroxysmal atrial fibrillation on Eliquis, chronic, present on admission. Stable. 5. Hypertension, chronic, present on admission. Stable. 6. Hyperlipidemia, chronic, present on admission. Stable. 7. Diabetes mellitus type 2, diet controlled and non-insulin using, chronic, present on admission. Stable. 8. Acquired hypothyroidism, present on admission, stable Hospital Course: Michelle Quintanilla is a 75-year-old female with a past medical history significant for hypertension, hyperlipidemia, diabetes mellitus type 2, non-insulin using, paroxysmal atrial fibrillation on Eliquis, pulmonary fibrosis, and hypothyroidism who was seen in the ED the day prior to admission for ground level fall with scalp laceration and then presented to the ED the following day on 03/07 with progressive weakness and dizziness and was admitted for left lower lobe pneumonia, hyponatremia, and dehydration 1. Left lower lobe bacterial pneumonia, present on admission. Resolving. -Patient presented with progressive weakness and dizziness and was found to have left lower lobe pneumonia. -Repeat chest x-ray demonstrated pulmonary fibrosis with worsening left lower lobe pneumonia. -Initial WBC 17.7 and procalcitonin < 0.05. WBC trended down now 12.7. Procalcitonin peaked at 4.48 and trending down now 3.39. Continued to monitor WBC and procalcitonin daily. Recommend repeat CBC and procalcitonin in 1 week per PCP. -Continued azithromycin x3 doses in ceftriaxone 2 g IV daily. Patient discharged on Keflex 500 mg twice daily for 5 additional days to complete 7 days total of antibiotic therapy. -COVID 19 negative and ruled out. -Urine culture and blood cultures have no growth. 2. Acute on chronic hyponatremia, acute portion secondary to pneumonia and dehydration,present on admission. Resolving. -Acute portion likely secondary to left lower lobe pneumonia and dehydration from infection and decreased PO intake. Chronic portion likely due to pulmonary fibrosis -Initial sodium level 122. Sodium level trending up now 128. Continue to encourage PO intake of fluids. -Received 1.5 L of NS in ED. Continued IV fluids until adequately hydrated then discontinued. Continue to encourage PO intake of fluids. -Held furosemide. -Patient initially had orthostasis which has now resolved. -Recommend repeat sodium level in 1 week per PCP. 3. Pulmonary fibrosis, present on admission. Presumed stable. -Patient has a remote history of smoking and quit in the 1960s. Previously smoked 2 packs per day. She denies worsening of her chronic dyspnea. -Repeat chest x-ray demonstrated pulmonary fibrosis with worsening left lower lobe pneumonia. -Continued respiratory therapy evaluation and treatment. Continued incentive spirometry 10 times every hour while awake. Continued supplemental oxygen as needed to maintain oxygen saturations greater than 88-92%. Patient is on home oxygen 1-2 L as needed. 4. Paroxysmal atrial fibrillation on Eliquis, chronic, present on admission. Stable. -Patient denies complaints of chest pain or palpitations. -EKG demonstrated sinus rhythm with first-degree AV block. -Continued home metoprolol 50 mg twice daily and Eliquis 5 mg twice daily. -Continued to monitor electrolytes and replete if necessary. Goal K > 4.0 and Mg > 2.0. 5. Hypertension, chronic, present on admission. Stable. -Continued amlodipine 5 mg daily. Held furosemide 20 mg daily for 1 week 03/17 or until sodium level improves per PCP. 6. Hyperlipidemia, chronic, present on admission. Stable. -Continued home pravastatin 40 mg daily at bedtime. 7. Diabetes mellitus type 2, diet controlled and non-insulin using, chronic, present on admission. Stable. -Hemoglobin A1c 6.3% indicative of tight glycemic control in prediabetic range. -Continued diet control with carbohydrate consistent diet. 8. Acquired hypothyroidism, present on admission, stable -TSH 5.01 with free T4 1.69 possibly indicative of subclinical hypothyroidism. Did not adjust levothyroxine dose as patient is acutely ill. Recommend repeat thyroid function testing in 4-6 weeks. -Continued home levothyroxine 75 mcg daily. Exam Vital Signs (past 8 hours): - 03/10/20 03:20 03/10/20 08:00 Temperature 98.0 F 97.8 F Pulse Rate 80 69 Respiratory Rate 18 18 Blood Pressure 145/85 H 144/90 H Pulse Oximetry 93 94 Oxygen Delivery Method Room Air Oxygen Flow Rate 0 Narrative Exam Narrative: General: Elderly female sitting in bedside chair and in no acute distress, well-developed, well-nourished, slightly irritable but appropriately interactive. HEENT: Normocephalic. Traumatic with scalp laceration stapled. External ears without defect. Pupils equal, round, and reactive to light. Anicteric sclerae, moist conjunctivae, and no lid lag. Oropharynx free of erythema and cobble stoning with moist mucosa. Neck: Supple with full range of motion. No jugular venous distension. No lymphadenopathy or thyromegaly. Cardiovascular: Regular rate and rhythm without murmurs, rubs, or gallops appreciated. Pulmonary: Clear to auscultation bilaterally with scattered crackles throughout and coarse lung sounds on left lower lobe. Normal respiratory effort with no use of accessory muscles. Abdomen: Soft, bowel sounds present, nontender, nondistended. No hepatosplenomegaly or masses appreciated. Extremities: No clubbing, cyanosis, or edema. Skin: Normal temperature, turgor, and texture; no rash, ulcers, or subcutaneous nodules appreciated. Neurological: Cranial nerves grossly intact. Psychiatric: Slightly irritable mood and flat affect. Appears alert and oriented to person, place, and time. Objective Labs Result Diagrams: 03/10/20 05:38 03/10/20 05:38 Labs: Laboratory Results - last 24 hr 03/10/20 03/10/20 03/10/20 05:38 05:38 05:38 WBC 12.7 H RBC 3.50 L Hgb 9.5 L Hct 29.8 L MCV 85.2 MCH 27.2 MCHC 31.9 RDW 17.5 H Plt Count 383 Neut % (Auto) 72.9 Lymph % (Auto) 11.6 L Vigo % (Auto) 7.3 Eos % (Auto) 6.8 H Baso % (Auto) 1.4 Neut # (Auto) 9300 H Lymph # (Auto) 1500 Vigo # (Auto) 900 Eos # (Auto) 900 H Baso # (Auto) 200 H Sodium 128 L Potassium 3.9 Chloride 98 Carbon Dioxide 26 BUN 4 L Creatinine 0.58 Estimated GFR > 60.0 BUN/Creatinine Ratio 6.9 Glucose 98 Calcium 8.5 Magnesium Procalcitonin 3.39 H 03/10/20 05:38 WBC RBC Hgb Hct MCV MCH MCHC RDW Plt Count Neut % (Auto) Lymph % (Auto) Vigo % (Auto) Eos % (Auto) Baso % (Auto) Neut # (Auto) Lymph # (Auto) Vigo # (Auto) Eos # (Auto) Baso # (Auto) Sodium Potassium Chloride Carbon Dioxide BUN Creatinine Estimated GFR BUN/Creatinine Ratio Glucose Calcium Magnesium 1.7 Procalcitonin Discharge Plan Discharge Plan Patient Disposition: Assisted Living Other facility: [facility] Discharge comment: You are being discharged home with home health for physical therapy to [facility]. Please use your walker at all times. Your martín in your scalp will need to be removed 7-10 days after placed by a nurse at [facility] (03/13-03/16). You have left lower lobe pneumonia. You have completed a course of azithromycin and have been prescribed Keflex 500 mg twice daily for 5 additional days to complete treatment course. You have been prescribed Mucinex 1200 mg twice daily as needed to thin out thick mucus secretions. You have also been prescribed clotrimazole cream to be applied under breast twice daily for 2 weeks. Please do not take your furosemide for 1 week until your sodium level is improved. Please follow-up with your primary care provider, Dr. Concepcion, regarding your hospitalization and repeat lab work. You have been ruled out for coronavirus. Discharge orders & Medications Discharge Orders: Discharge (Order); Ordered 03/10/20 Ordered By: Stella Quiroga Prescriptions: New cephalexin [Keflex] 500 mg capsule 500 mg PO BID Qty: 10 RF: 0 guaifenesin [Mucus Relief ER] 600 mg Tablet Extended Release 12hr 1,200 mg PO BID PRN (Reason: Secretions) Qty: 14 RF: 0 Continued potassium chloride 10 mEq Capsule, Extended Release 10 meq PO DAILY RF: 0 pravastatin 40 mg Tablet 40 mg PO BEDTIME RF: 0 amlodipine 5 mg Tablet 5 mg PO DAILY RF: 0 levothyroxine 75 mcg Tablet 75 mcg PO QAM RF: 0 lorazepam 0.5 mg Tablet 1 mg PO Q6H PRN (Reason: Anxiety) RF: 0 desloratadine 5 mg Tablet 5 mg PO DAILY RF: 0 esomeprazole magnesium 40 mg Capsule,Delayed Release(Dr/Ec) 40 mg PO DAILY RF: 0 allopurinol 300 mg Tablet 300 mg PO DAILY RF: 0 coenzyme Q10 [Co Q-10] 100 mg Capsule 100 mg PO DAILY RF: 0 cholecalciferol (vitamin D3) [Vitamin D3] 1,000 unit Tablet 1,000 unit PO DAILY RF: 0 biotin 5 mg Tablet 5 mg PO DAILY RF: 0 denosumab 60 mg/mL Syringe 60 mg SUB-Q [id number] RF: 0 apixaban [Eliquis] 5 mg Tablet 5 mg PO BID Qty: 60 RF: 0 clotrimazole 1 % cream 1 applictn TOP BID 14 Days RF: 0 furosemide 20 mg Tablet 20 mg PO DAILY Qty: 0 RF: 0 metoprolol tartrate 100 mg tablet 50 mg PO BID RF: 0 Other Ambulatory Orders: Basic Metabolic Panel (Stat) Timeframe: 1 Week Facility: [facility] - Location: Laboratory Ordered By: Stella Quiroga Complete Blood Count AUTO DIFF (Stat) Timeframe: 1 Week Facility: [facility] - Location: Laboratory Ordered By: Stella Quiroga Procalcitonin (Routine) Timeframe: 1 Week Facility: [facility] - Location: Laboratory Ordered By: Stella Quiroga Follow up/Referrals: Salvador Concepcion MD [Primary Care Provider] - 1 Week Diet/Activity/Treatments Diet: Low-fat, Low-sodium and Low-cholesterol Activity: Activity as tolerated with forward wheeled walker and physical therapy Oxygen: 1-2 L as needed [facility] Rehab type: Physical therapy Visit Report/Discharge Packet Instructions: DI for Dehydration -- Adult, DI for Pneumonia -- Adult, DI for Hyponatremia, How to Prevent Falls, Guaifenesin, Cephalexin Discharge Data Primary Care Provider: Salvador Concepcion Discharges patient from system. Discharge Date/Time: 03/10/20 11:38 Quality VTE Deep Vein Thrombosis/Pulmonary Embolism Present on Admission: No
--- NOTE | 2020-03-10 09:33 | CM.DANOTE ---
Addendum entered by Megan Hobbs 03/10/20 10:22: Spoke with [facility] and they report that patient resides in [facility]. Patient okay to return to her apartment. Facility notified that patient COVID negative. [facility] requested that clinical be faxed to her on patient for potential of moving her to assisted living in the near future. Met with patient explained role. Patient aware and agreeable to return home today. Patient with orders for HH. Patient has no preference in agencies, therefore, placed call to Ronnie with [facility]. He accepted referral and will put on schedule within the next 24-48hrs. Patient provided with brochure and [employer] asked RICK/Kaylin to fax to [facility]. Order obtained and F2F completed. P: Home today with [facility]. [facility] reports that they will pick patient up around 11:00am. RN notified. ANAND Lopez Original Note: DCP/continued: Reviewed chart. Patient resides at [facility]. Placed call to [facility] phone# [phone] on 03-09-20 leaving indicating that patient will be discharging from [facility] today. COVID test negative. Official order for discharge received today. Awaiting call back from [facility]. Current recommendation is home with HH. Awaiting to discuss with Kevin. P: Home today possibly with HH. Awaiting call back from [facility]. ANAND Lopez
[2020-03-10] MEDS: AZITHROMYCIN 250 MG TABLET 500 MG PO (10:55)
--- NOTE | 2020-03-10 11:04 | OT.IP.TRT ---
Current Diagnoses Hypo-osmolality and hyponatremia (03/08/20) Pneumonia, unspecified organism (03/08/20) Pulmonary fibrosis, unspecified (03/08/20) Occupational Therapy Treatment Note M3 OT- IP Subjective and Pain Start: 03/08/20 09:59 Freq: Status: Active Protocol: Document 03/10/20 12:03 [facility] (Rec: 03/10/20 12:12 [facility] [id number]) OT- Subjective Occupational Therapy Visit Type Type Treatment Note Visit Start Time 10:09 Visit Stop Time 11:04 Total Visit Minutes 55 Occupational Therapy Visit Comments Patient Comments Pt wanting to shower. Patient/Caregiver Goals To go home and be able to take showers again on her own. OT Pain Assessment Pain When Pain Assessed At Rest Pain Present Pain Present Denied Pain M4 OT- IP ADL's Start: 03/08/20 09:59 Freq: Status: Active Protocol: Document 03/10/20 12:03 [facility] (Rec: 03/10/20 12:12 [facility] [id number]) OT ADL-Grooming General Evaluation Grooming Ability Standby Assistance Comments OT Grooming Comments set-up while in the recliner OT ADL-Dressing General Eval Upper Body Dressing Ability Standby Assistance Lower Body Dressing Ability Moderate Assistance Areas Needing Assistance Pants/Shorts,Socks Comments OT Dressing Comments Assist to help thread her feet for underwear and socks as pt getting tired. OT ADL-Toileting General Evaluation Toileting Ability Standby Assistance Devices Toileting Assistive Devices Grab Bars Comments OT Toileting Comments Pt urinated seated on toilet. Performed pericare without assist. Cues to be sure to wipe from front to back. OT ADL-Bathing Bathing Type Bathing Type Shower General Evaluation Bathing Ability Moderate Assistance Areas Needing Assistance Wash/Dry Back,Wash/Dry Perineal Area Comments OT Bathing Comments Assist for pericare for completeness and for her bath. Pt also needing assist to help put barrier cream on her bottom and medication underneath her breasts. Pt educated to be sure to always wash and dry thoroughly underneath her breasts. M6 OT- IP Functional Cognition Start: 03/08/20 09:59 Freq: Status: Active Protocol: Document 03/10/20 12:03 [facility] (Rec: 03/10/20 12:12 [facility] [id number]) Cognitive Factors Limiting Selfcare Function Cognitive Comments Cognitive Assessment Comments Appears at baseline, however needing education for reminders to wipe from front to back. Pt also given information regarding energy conservations and fall prevention techniques and suggestions. M7 OT- IP Mobility and Balance Start: 03/08/20 09:59 Freq: Status: Active Protocol: Document 03/10/20 12:03 [facility] (Rec: 03/10/20 12:12 [facility] [id number]) OT-Transfer Assessment Sit to and From Stand Sit to and from Stand Standby Assistance Transfers Transfer Ability Standby Assistance,Contact Guard Assistance Technique Transfer Destination Chair,Shower Stall,Toilet Transfer Technique Stand Step Pivot Devices Transfer Assistive Devices Gait Belt,Front Wheeled Walker Comments Mobility Comments Pt needing CGA to step over threshold of the shower otherwise SBA with FWW. Pt states now that she will use the FWW as feels a little unsteady on her feet. OT- Balance Assessment Sitting Balance and Reactions Static Sitting Balance Ability Normal Dynamic Sitting Balance Ability Good Standing Balance and Reactions Static Standing Balance Ability Fair M9 OT- IP Assessment and Plan Start: 03/08/20 09:59 Freq: Status: Active Protocol: Document 03/10/20 12:03 [facility] (Rec: 03/10/20 12:12 [facility] [id number]) OT Summary Assessment and Plan Potential Rehabilitation Potential Excellent Analytic Complexity at Evaluation Low Summary Progress Towards Goals Progressing Toward Goals Assessment Summary Pt able to participate in shower however at the end of the task needing assist as tiring. Pt will benefit from home health and more assist when back at [facility]. Pt states will get more help. Pt going home today. Goals Days to Meet Goals 1 Frequency of Treatment Frequency Of Treatment Once a Day Treatment Plan OT Treatment Plan Patient/Family Education, Discharge Planning Discharge Recommendations OT Discharge Recommendations Home with Assistance,Home Health Transportation Needs at Discharge Private Vehicle
[2020-03-10] MEDS: MAGNESIUM CHLORIDE 64 MG TABLET 128 MG PO (11:13)
--- NOTE | 2020-03-10 11:19 | PT-IP ANOTE ---
Checked with pt at 900am and pt asked PT to wait as she just ate and got her meds and was not feeling up to therapy at this time. Checked again at 11:15 and pt about to leave for dc at this time.
[2020-03-10 11:28] LABS: Hemoglobin A1C% w Est Avg Glu 6.3 % (4.0-6.0)
[2020-03-10 11:33] LABS: Procalcitonin 4.38 ng/mL (<0.5)
--- NOTE | 2020-03-10 11:36 | PC.NURSE ---
Day shift: Pt taken to [facility] bus in by FAVIOLA at approx 1135. Paperwork is signed and all questions answered. Pt has MD manuel. Went over fall prevention teaching. Pt was also instructed to not take her Lasix for [address] Quiroga. Pt has all personal belongings. Pt will have HomeHealth at [facility]. Pt was on the phone with HomeHealth prior to d/c today.
[2020-03-10 16:13] LABS: Procalcitonin < 0.05 ng/mL (<0.5)
--- NOTE | 2020-03-14 11:25 | CM.DPC ---
DCP Cont: Faxed discharge summary to Kevin Avilez at fax # [phone]. Fax confirmation scanned in. Kaylin Cooper, [facility] Deputy Controller
== END 2020-03-10 11:38 | disposition home health service (06) | DRG 194 ==
LOC: ED 03-08 00:19 → AC 03-08 00:22
PROVIDERS: Family Medicine; Internal Medicine; Admitting Provider Nurse Practitioner Adult Health; Emergency Provider Emergency Medicine; Family Provider Internal Medicine; PCP Internal Medicine; Referring Provider Emergency Medicine; Visit Provider Nurse Practitioner Adult Health
DX: J15.9 Unspecified bacterial pneumonia (principal); E87.1 Hypo-osmolality and hyponatremia; E86.0 Dehydration; J84.10 Pulmonary fibrosis, unspecified; I48.0 Paroxysmal atrial fibrillation; Z79.01 Long term (current) use of anticoagulants; Z85.07 Personal history of malignant neoplasm of pancreas; E11.9 Type 2 diabetes mellitus without complications; I10 Essential (primary) hypertension; E03.9 Hypothyroidism, unspecified; E78.5 Hyperlipidemia, unspecified; M10.9 Gout, unspecified; Z87.891 Personal history of nicotine dependence
CPT/HCPCS: 12001; 36415; 51701; 70450; 71045; 71046; 80048; 81001; 82962; 83036; 83605; 83735; 84100; 84145; 84439; 84443; 85025; 87040; 87086; 87635; 90471; 93005; 93010; 94762; 96361; 96365; 96375; 97116; 97161; 97165; 97530; 97535; 99284; 99285; 90715; C9113; J0696; J2405

== ENCOUNTER → 2020-05-09 18:32 | Outpatient (ROUT) | payer MEDICARE, BC, SELFPAY ==
[2020-03-08 01:15] VITALS: BMI 25.6
[2020-05-09 18:51] LABS: Add Manual Diff / Slide Review NO; Basophils Absolute Auto 100 /uL (0-100); Basophils Percent Auto 1.2 % (0-2); Eosinophils Absolute Auto 500 /uL (0-450); Eosinophils Percent Auto 3.9 % (2-4); Hematocrit 36.2 % (36-46); Hemoglobin 11.9 g/dL (12.0-16.0); Lymphocytes Absolute Auto 1100 /uL (1100-4500); Lymphocytes Percent Auto 9.4 % (25-40); Mean Corpuscular HGB Conc 32.9 % (30-36); Mean Corpuscular Hemoglobin 27.2 PG (26-34); Mean Corpuscular Volume 82.8 fL (80-100); Monocytes Absolute Auto 800 /uL (0-900); Monocytes Percent Auto 6.8 % (3-14); Neutrophils Absolute Auto 9400 /uL (1500-7000); Neutrophils Percent Auto 78.7 % (50-75); Platelet Count 359 X10^3/uL (150-400); Red Blood Cell Count 4.37 X10^6/uL (4.0-5.2); Red Cell Distribution Width 17.6 % (11.6-14.8); White Blood Cell Count 11.9 X10^3/uL (4.5-11.0)
[2020-05-09 18:58] LABS: Alanine Aminotransferase 7 IU/L (<35); Albumin 3.5 g/dL (3.5-5.0); Albumin Globulin Ratio 1.2 (1.0-2.8); Alkaline Phosphatase 139 U/L (38-126); Aspartate Aminotransferase 23 IU/L (14-36); BUN Creatinine Ratio 15.4 (6-22); Bilirubin Total 0.4 mg/dL (0.2-1.3); Blood Urea Nitrogen 10 mg/dL (7-17); Calcium 9.2 mg/dL (8.4-10.2); Carbon Dioxide 25 mmol/L (22-32); Chloride 91 mmol/L (98-107); Cholesterol 132 mg/dL (140-199); Estimated Glomerular Filt Rate > 60.0 mL/min (>60); Globulin 2.9 g/dL (1.7-4.1); Glucose 125 mg/dL (80-110); HDL Cholesterol 50 mg/dL (40-60); HEMOLYSIS < 15 (0-50); LDL Cholesterol Calculated 63 mg/dL (<100); Magnesium 1.7 mg/dL (1.6-2.3); Potassium 4.5 mmol/L (3.4-5.1); Sodium 125 mmol/L (137-145); Total Protein 6.4 g/dL (6.3-8.2); Triglycerides 93 mg/dL (35-150)
[2020-05-09 19:11] LABS: Vitamin D 25 Hydroxy (D3) < 12.8 ng/mL (30.0-100.0)
[2020-05-09 19:26] LABS: TSH w/ Reflex to FT4 2.91 uIU/mL (0.47-4.68)
== END ==
PROVIDERS: Family Provider Internal Medicine; PCP Internal Medicine; Visit Provider Physician Assistant
DX: E03.9 Hypothyroidism, unspecified (principal); M10.9 Gout, unspecified; I10 Essential (primary) hypertension; I48.91 Unspecified atrial fibrillation; E55.9 Vitamin D deficiency, unspecified
CPT/HCPCS: 80053; 80061; 82306; 83735; 84443; 85025

== ENCOUNTER 2020-06-05 21:29 | Emergency (ER) | payer MEDICARE, BC, SELFPAY ==
[2020-03-08 01:15] VITALS: BMI 25.6
[2020-06-05 21:30] VITALS: BP 78/42; PULSE 70; RESP 12; TEMP 36.2
--- NOTE | 2020-06-05 21:33 | DI.CT.S_ITS ---
PROCEDURE: CT HEAD/BRAIN WO CON INDICATIONS: altered level of consciousness, intubated TECHNIQUE: Noncontrast 4.5 mm thick angled axial sections acquired from the foramen magnum to the vertex, with coronal and sagittal reformats. For radiation dose reduction, the following was used: automated exposure control, adjustment of mA and/or kV according to patient size. COMPARISON: [facility], CT, CT HEAD/BRAIN WO CON, 03/07/2020, 21:43. [facility], CT, CT HEAD/BRAIN WO CON, 03/06/2020, 16:09. FINDINGS: Image quality: Excellent. CSF spaces: Basal cisterns are patent. No extra-axial fluid collections. The ventricles are symmetric in size and shape. Brain: No intracranial bleeds or masses. There is cerebral volume loss for age, with resultant ventricular and sulcal prominence. There are periventricular and deep white matter chronic small vessel ischemic changes. There is intracranial internal carotid artery and vertebral artery atherosclerosis. Skull and face: Calvarium and visualized facial bones appear intact, without suspicious lesions. Sinuses: Visualized sinuses and mastoids are clear. IMPRESSION: No acute intracranial disease process. Dictated by: Christina Alva MD, PhD on 06/06/2020 at 7:08 Approved by: Christina Alva MD, PhD on 06/06/2020 at 7:10
--- NOTE | 2020-06-05 21:33 | DI.CT.S_ITS ---
PROCEDURE: CT CHEST WO CON INDICATIONS: rapid respiratory failure, intubated TECHNIQUE: Noncontrast 5 mm thick sections acquired from the pulmonary apices to the posterior costophrenic angles. 1 mm lung window, 5 mm thick coronal and sagittal and 7 mm axial MIP reformats were then acquired. For radiation dose reduction, the following was used: automated exposure control, adjustment of mA and/or kV according to patient size. COMPARISON: [facility], CT, CT ABDOMEN PELVIS W CON, 06/05/2020, 23:42. FINDINGS: Image quality: Excellent. Lungs and pleura: Paraseptal emphysematous changes noted in the lungs bilaterally. Bilateral basilar predominant bronchiectasis. Mild centrally predominant interstitial prominence. Small right-sided pleural effusion. No pneumothorax. Central and peripheral airways are patent and normal in caliber. Endotracheal tube projects 2 centimeter superior to the ari. Mediastinum: Heart is mildly enlarged Atherosclerotic calcifications are noted in the aorta, great vessels and the coronary vasculature.No pericardial effusion. No mediastinal adenopathy by size criteria. Thoracic aorta and central pulmonary arteries are normal in size. Esophagus is normal in caliber. Moderate-sized hiatal hernia. Bones and chest wall: No suspicious bony lesions. No vertebral body compression fractures. No axillary or supraclavicular adenopathy by size criteria. Thyroid gland is within normal limits. Abdomen: Gallbladder is surgically absent. Visualized upper abdominal solid organs and bowel loops appear normal in the absence of contrast. IMPRESSION: 1. Bilateral emphysematous disease and bronchiectasis. 2. Small right-sided pleural effusion. 3. Cardiomegaly with mild prominence of the interstitium concerning for CHF. 4. Atherosclerosis including the coronary vasculature. Dictated by: Christina Alva MD, PhD on 06/06/2020 at 8:36 Approved by: Christina Alva MD, PhD on 06/06/2020 at 8:41
[2020-06-05] MEDS: SODIUM CHLORIDE 0.9% 1,000 ML 1000 ML IV (21:35)
--- NOTE | 2020-06-05 21:37 | ED_ITS ---
HPI - SOB/Dyspnea General Chief Complaint: Shortness of Breath/Dyspnea Stated Complaint: SOB Time Seen by Provider: 06/05/20 21:29 Source: EMS Mode of arrival: EMS History of Present Illness HPI Narrative: 75-year-old female former smoker with history of AFib, on Eliquis and untreated pancreatic cancer presents by EMS in severe respiratory distress. Patient called EMS and told them that over the course of the day she had been increasingly short of breath it was achy all over. On arrival she was having significant work of breathing with respiratory rate in the 40s to 50s, she was very rhonchorous throughout and had dropping sats. EMS elected to provide rapid sequence intubation in the field, patient is a full code. She was intubated with 7.5 endotracheal tube, ketamine and rocuronium were used for sedation. Related Data Home Medications Medication Instructions Recorded Confirmed allopurinol 300 mg PO DAILY 03/21/18 03/21/18 amlodipine 5 mg PO DAILY 03/21/18 03/21/18 biotin 5 mg PO DAILY 03/21/18 03/21/18 cholecalciferol (vitamin D3) 1,000 unit PO DAILY 03/21/18 03/21/18 [Vitamin D3] coenzyme Q10 [Co Q-10] 100 mg PO DAILY 03/21/18 03/21/18 denosumab 60 mg SUB-Q [id number] 03/21/18 03/21/18 desloratadine 5 mg PO DAILY 03/21/18 03/21/18 esomeprazole magnesium 40 mg PO DAILY 03/21/18 03/21/18 levothyroxine 75 mcg PO QAM 03/21/18 03/21/18 lorazepam 1 mg PO Q6H PRN 03/21/18 03/21/18 potassium chloride 10 meq PO DAILY 03/21/18 03/21/18 pravastatin 40 mg PO BEDTIME 03/21/18 03/21/18 metoprolol tartrate 50 mg PO BID 08/21/18 Previous Rx's Medication Instructions Recorded apixaban [Eliquis] 5 mg PO BID #60 tab 03/21/18 cephalexin [Keflex] 500 mg PO BID #10 cap 03/10/20 furosemide 20 mg PO DAILY #0 tab 03/10/20 guaifenesin [Mucus Relief ER] 1,200 mg PO BID PRN #14 tab 03/10/20 Allergies Allergy/AdvReac Type Severity Reaction Status Date / Time fosinopril [From MONOPRIL] Allergy Severe ANAPHLAXIS Verified 03/07/20 21:35 amoxicillin [AMOXICILLIN] AdvReac Severe DIARRHEA, Verified 03/07/20 21:35 NAUSEA colchicine [COLCHICINE] AdvReac Severe DIARRHEA, Verified 03/07/20 21:35 NAUSEA Review of Systems Review of Systems ROS Unobtainable: Unobtainable due to medical condition Patient History Medical History Diabetes mellitus type 2, diet-controlled (Acute) Gout (Acute) History of pancreatic cancer (Inactive) Hyperlipidemia (Acute) Hypertension (Acute) Hypothyroid (Acute) Osteoarthritis (Acute) Osteoporosis (Acute) Pancreatitis (Acute) Paroxysmal atrial fibrillation (Acute) Pulmonary fibrosis (Acute) Syncope (Chronic) Syncope and collapse (Acute) Surgical History History of major abdominal surgery (Acute) S/P total hip arthroplasty (Acute) S/P total knee arthroplasty (Acute) Family History Father Heart disease Mother Heart disease Brother Heart disease Myocardial infarction Social History household members: none Smoking Status: Former smoker Smoking Status: Former smoker alcohol intake frequency: 0-2 drinks per day Substance Use Type: does not use Exam Narrative Exam Narrative: GENERAL: [75] year old patient appears stated age. Critical but stable intubation HEAD: Atraumatic. Normocephalic. EYES:No scleral icterus. No injection or drainage. ENT: Nose without bleeding, purulent drainage. Throat without erythema, tonsillar hypertrophy or exudate. Airway patent. NECK: Trachea midline. Non tender CARDIOVASCULAR: Regular rate and rhythm without murmurs, gallops, or rubs. RESPIRATORY: Crackles in bilateral bases, equal breath sounds GASTROINTESTINAL: Abdomen soft, non-tender, nondistended. EXTREMITIES: No edema or joint tenderness. BACK: Nontender without deformity or crepitance. No flank tenderness. NEURO: Sedated and intubated SKIN: No rash or erythema of visible areas Initial Vital Signs Initial Vital Signs: Vital Signs Temperature 97.1 F L 06/05/20 21:30 Pulse Rate 70 06/05/20 21:30 Respiratory Rate 12 06/05/20 21:30 Blood Pressure 78/42 L 06/05/20 21:30 Course Course Course Narrative: patient vitals remain stable. She has no PE, definite focal infiltrate, or PTX. She has hypervolemic hyponatremia and hx of Cirrhosis. Discussed with hospitalist here, requests transfer given need for true hides soaker, vent management and complex fluid status with hypervolemia in setting of hyponatremia Doretha called but no ICU beds Jaylyn called, but no ICU beds Chadd called, happy to accept. Parking Lot Chauffeur (Dr. Fernandez) makes no significant recommendations. Keep fluids at a trickle, keep patient comfortable, will see on arrival Orders Ordered: ED Orders 06/05/20 21:33 CT chest wo con Stat CT head/brain wo con Stat 06/05/20 21:34 Arterial Blood Gas Stat EKG-12 Lead Stat 06/05/20 22:18 C-Reactive Protein Quant Stat Complete Blood Count AUTO DIFF Stat Comprehensive Metabolic Panel Stat D Dimer Stat Ferritin Stat Lactate (Lactic Acid) Stat Lactate Dehydrogenase Stat NT-proBNP (BNP-Adult 18+) Stat Procalcitonin Stat Troponin & CK Cardiac Panel Stat 06/05/20 22:40 Blood Culture Stat 06/05/20 23:01 Arterial Blood Gas Stat Arterial Blood Gas Stat 06/05/20 23:38 CT abdomen pelvis w con Stat CT angio chest PE protocol Stat 06/06/20 03:01 Basic Metabolic Panel Stat Norepinephrine Bitartrate 4 mg (/ Dextrose) 254 mls @ 30.48 mls/hr IV TITRATE CONSTANCE; Protocol Last Admin: 06/06/20 05:01 Dose: 8 mcg/min, 30.48 mls/hr Documented by: HGUBERN Discontinued Medications Epinephrine HCl (Adrenalin) 0.01 mg IV NOW ONE Stop: 06/06/20 04:26 Epinephrine HCl (Adrenalin) 0.01 mg IV NOW ONE Stop: 06/06/20 04:40 Fentanyl (Sublimaze) 100 mcg IV NOW ONE Stop: 06/06/20 02:43 Last Admin: 06/06/20 02:57 Dose: 100 mcg Documented by: CTRSABRINA Furosemide (Lasix) 40 mg IV NOW ONE Stop: 06/06/20 00:58 Last Admin: 06/06/20 02:46 Dose: 40 mg Documented by: BARRY Sodium Chloride (Normal Saline 0.9%) 1,000 mls @ 1,000 mls/hr IV BOLUS ONE Stop: 06/06/20 00:32 Last Infusion: 06/05/20 22:20 Dose: 0 mls/hr Documented by: Admin: 06/05/20 21:35 Dose: 1,000 mls/hr Documented by: KASSANDRA Levofloxacin (Levaquin) 750 mg in 150 mls @ 100 mls/hr IV NOW ONE Stop: 06/06/20 02:29 Last Admin: 06/06/20 02:40 Dose: 100 mls/hr Documented by: BARRY Ketamine HCl (Ketalar) 60 mg IV NOW ONE Stop: 06/06/20 03:52 Last Admin: 06/06/20 04:02 Dose: 60 mg Documented by: KASSANDRA Reevaluation(s) Reevaluation #1: 0400 - patient awake but comfortable on vent, suggests pain in throat, requests pain medication. She had pressure drops after intubation and again with fentanyl earlier so ketamine was chosen. This resulted in drop in BP to the 60s which has been improved with pushes of epinephrin 10mcg. Low BP persisting so Norepi drip ordered for transport Vital Signs Vital signs: Vital Signs - 8 hr 06/05/20 21:30 06/05/20 22:34 06/06/20 00:00 Temperature 97.1 F L Pulse Rate 70 79 Respiratory Rate 12 12 Blood Pressure 78/42 L 158/79 H Pulse Oximetry 100 100 06/06/20 00:15 06/06/20 00:30 06/06/20 00:45 Temperature Pulse Rate 80 78 73 Respiratory Rate 20 20 20 Blood Pressure 142/68 H 144/67 H 131/66 Pulse Oximetry 100 97 96 06/06/20 01:00 06/06/20 01:15 06/06/20 01:30 Temperature Pulse Rate 68 66 58 L Respiratory Rate 20 20 20 Blood Pressure 134/60 125/63 119/59 L Pulse Oximetry 95 95 93 06/06/20 01:45 06/06/20 02:00 06/06/20 02:15 Temperature Pulse Rate 59 L 58 L 60 Respiratory Rate 20 20 20 Blood Pressure 127/55 L 113/59 L 119/59 L Pulse Oximetry 93 93 93 06/06/20 02:30 06/06/20 02:45 06/06/20 03:00 Temperature Pulse Rate 62 67 60 Respiratory Rate 20 20 29 H Blood Pressure 117/58 L 147/67 H Pulse Oximetry 93 94 91 06/06/20 03:13 06/06/20 03:15 06/06/20 03:30 Temperature Pulse Rate 62 61 61 Respiratory Rate 20 20 20 Blood Pressure 91/54 L 93/55 L 91/54 L Pulse Oximetry 95 96 98 06/06/20 03:35 06/06/20 03:40 06/06/20 03:45 Temperature Pulse Rate 62 61 62 Respiratory Rate 20 20 20 Blood Pressure 98/54 L Pulse Oximetry 97 97 98 06/06/20 03:50 06/06/20 03:55 06/06/20 04:00 Temperature Pulse Rate 63 62 62 Respiratory Rate 20 20 20 Blood Pressure 101/55 L Pulse Oximetry 98 97 97 06/06/20 04:05 06/06/20 04:10 06/06/20 04:15 Temperature Pulse Rate 68 63 64 Respiratory Rate 33 H 20 20 Blood Pressure Pulse Oximetry 96 94 94 06/06/20 04:17 06/06/20 04:19 06/06/20 04:20 Temperature Pulse Rate 63 62 61 Respiratory Rate 20 20 20 Blood Pressure 68/42 L 69/43 L 74/46 L Pulse Oximetry 94 94 94 06/06/20 04:23 06/06/20 04:25 06/06/20 04:30 Temperature Pulse Rate 70 67 62 Respiratory Rate 20 20 20 Blood Pressure 138/64 105/53 L Pulse Oximetry 94 95 96 06/06/20 04:31 06/06/20 04:33 06/06/20 04:35 Temperature Pulse Rate 61 72 70 Respiratory Rate 26 H 35 H 20 Blood Pressure 70/41 L 111/54 L Pulse Oximetry 96 94 93 06/06/20 04:40 06/06/20 04:45 06/06/20 04:47 Temperature Pulse Rate 64 57 L 62 Respiratory Rate 37 H 21 40 H Blood Pressure 60/35 L 60/38 L Pulse Oximetry 96 93 93 06/06/20 04:49 06/06/20 04:50 06/06/20 04:55 Temperature Pulse Rate 74 79 68 Respiratory Rate 20 20 20 Blood Pressure 130/62 124/58 L 98/51 L Pulse Oximetry 92 92 97 06/06/20 05:00 Temperature Pulse Rate 61 Respiratory Rate 20 Blood Pressure 70/39 L Pulse Oximetry 94 MDM - SOB/Dyspnea Lab Data Result diagrams: 06/05/20 22:18 06/06/20 03:01 Labs: Lab Results 06/05/20 06/05/20 06/05/20 Range/Units 21:35 22:18 22:18 WBC (4.5-11.0) X10^3/uL RBC (4.0-5.2) X10^6/uL Hgb (12.0-16.0) g/dL Hct (36-46) % MCV (80-100) fL MCH (26-34) PG MCHC (30-36) % RDW (11.6-14.8) % Plt Count (150-400) X10^3/uL Neut % (Auto) (50-75) % Lymph % (Auto) (25-40) % Hutchinson % (Auto) (3-14) % Eos % (Auto) (2-4) % Baso % (Auto) (0-2) % Neut # (Auto) (5890-8457) /uL Lymph # (Auto) (4701-3747) /uL Hutchinson # (Auto) (0-900) /uL Eos # (Auto) (0-450) /uL Baso # (Auto) (0-100) /uL D-Dimer 2167 H (<230) ng/mL ABG pH (7.35-7.45) ABG pCO2 (35-45) mmHg ABG pO2 (80-100) mmHg ABG HCO3 (22-26) mmol/L ABG Total CO2 (21-31) mmol/L ABG O2 Saturation (95-100) % ABG Base Excess (-2-2) mmol/L FiO2 Sodium (137-145) mmol/L Potassium (3.4-5.1) mmol/L Chloride (98-107) mmol/L Carbon Dioxide (22-32) mmol/L BUN (7-17) mg/dL Creatinine (0.52-1.04) mg/dL Estimated GFR (>60) mL/min BUN/Creatinine Ratio (6-22) Glucose (80-110) mg/dL Lactate (0.7-2.1) mmol/L Calcium (8.4-10.2) mg/dL Ferritin (11-264) ng/mL Total Bilirubin (0.2-1.3) mg/dL AST (14-36) IU/L ALT (<35) IU/L Alkaline Phosphatase (38-126) U/L Lactate Dehydrogenase (313-618) U/L Total Creatine Kinase (30-135) U/L CK-MB (CK-2) CK-MB (CK-2) Rel Index Troponin I (0.01-0.034) ng/mL C-Reactive Protein (<1.0) mg/dL NT-Pro-B Natriuret Pep (<450) pg/mL Total Protein (6.3-8.2) g/dL Albumin (3.5-5.0) g/dL Globulin (1.7-4.1) g/dL Albumin/Globulin Ratio (1.0-2.8) Procalcitonin < 0.05 (<0.5) ng/mL COVID-19 PCR Negative (Negative) 06/05/20 06/05/20 06/05/20 Range/Units 22:18 22:18 22:18 WBC 13.6 H (4.5-11.0) X10^3/uL RBC 3.89 L (4.0-5.2) X10^6/uL Hgb 10.0 L (12.0-16.0) g/dL Hct 31.3 L (36-46) % MCV 80.4 (80-100) fL MCH 25.7 L (26-34) PG MCHC 31.9 (30-36) % RDW 16.9 H (11.6-14.8) % Plt Count 346 (150-400) X10^3/uL Neut % (Auto) 90.9 H (50-75) % Lymph % (Auto) 3.8 L (25-40) % Hutchinson % (Auto) 3.9 (3-14) % Eos % (Auto) 0.7 L (2-4) % Baso % (Auto) 0.7 (0-2) % Neut # (Auto) 10501 H (9765-5557) /uL Lymph # (Auto) 500 L (6654-3294) /uL Hutchinson # (Auto) 500 (0-900) /uL Eos # (Auto) 100 (0-450) /uL Baso # (Auto) 100 (0-100) /uL D-Dimer (<230) ng/mL ABG pH (7.35-7.45) ABG pCO2 (35-45) mmHg ABG pO2 (80-100) mmHg ABG HCO3 (22-26) mmol/L ABG Total CO2 (21-31) mmol/L ABG O2 Saturation (95-100) % ABG Base Excess (-2-2) mmol/L FiO2 Sodium 118 L* (137-145) mmol/L Potassium 4.5 (3.4-5.1) mmol/L Chloride 83 L (98-107) mmol/L Carbon Dioxide 28 (22-32) mmol/L BUN 11 (7-17) mg/dL Creatinine 0.52 (0.52-1.04) mg/dL Estimated GFR > 60.0 (>60) mL/min BUN/Creatinine Ratio 21.2 (6-22) Glucose 110 (80-110) mg/dL Lactate 1.0 (0.7-2.1) mmol/L Calcium 8.2 L (8.4-10.2) mg/dL Ferritin 91 (11-264) ng/mL Total Bilirubin 0.3 (0.2-1.3) mg/dL AST 21 (14-36) IU/L ALT 9 (<35) IU/L Alkaline Phosphatase 120 (38-126) U/L Lactate Dehydrogenase 427 (313-618) U/L Total Creatine Kinase < 20 L (30-135) U/L CK-MB (CK-2) TNP CK-MB (CK-2) Rel Index TNP Troponin I < 0.012 (0.01-0.034) ng/mL C-Reactive Protein 19.5 H (<1.0) mg/dL NT-Pro-B Natriuret Pep 6680 H (<450) pg/mL Total Protein 5.8 L (6.3-8.2) g/dL Albumin 2.8 L (3.5-5.0) g/dL Globulin 3.0 (1.7-4.1) g/dL Albumin/Globulin Ratio 0.9 L (1.0-2.8) Procalcitonin (<0.5) ng/mL COVID-19 PCR (Negative) 06/05/20 06/06/20 Range/Units 23:01 03:01 WBC (4.5-11.0) X10^3/uL RBC (4.0-5.2) X10^6/uL Hgb (12.0-16.0) g/dL Hct (36-46) % MCV (80-100) fL MCH (26-34) PG MCHC (30-36) % RDW (11.6-14.8) % Plt Count (150-400) X10^3/uL Neut % (Auto) (50-75) % Lymph % (Auto) (25-40) % Hutchinson % (Auto) (3-14) % Eos % (Auto) (2-4) % Baso % (Auto) (0-2) % Neut # (Auto) (1185-8852) /uL Lymph # (Auto) (2591-5065) /uL Hutchinson # (Auto) (0-900) /uL Eos # (Auto) (0-450) /uL Baso # (Auto) (0-100) /uL D-Dimer (<230) ng/mL ABG pH 7.31 L (7.35-7.45) ABG pCO2 56.1 H (35-45) mmHg ABG pO2 63 L (80-100) mmHg ABG HCO3 28 H (22-26) mmol/L ABG Total CO2 30 (21-31) mmol/L ABG O2 Saturation 89 L (95-100) % ABG Base Excess 2.0 (-2-2) mmol/L FiO2 40 Sodium 117 L* (137-145) mmol/L Potassium 4.5 (3.4-5.1) mmol/L Chloride 83 L (98-107) mmol/L Carbon Dioxide 24 (22-32) mmol/L BUN 11 (7-17) mg/dL Creatinine 0.48 L (0.52-1.04) mg/dL Estimated GFR > 60.0 (>60) mL/min BUN/Creatinine Ratio 22.9 H (6-22) Glucose 149 H (80-110) mg/dL Lactate (0.7-2.1) mmol/L Calcium 8.1 L (8.4-10.2) mg/dL Ferritin (11-264) ng/mL Total Bilirubin (0.2-1.3) mg/dL AST (14-36) IU/L ALT (<35) IU/L Alkaline Phosphatase (38-126) U/L Lactate Dehydrogenase (313-618) U/L Total Creatine Kinase (30-135) U/L CK-MB (CK-2) CK-MB (CK-2) Rel Index Troponin I (0.01-0.034) ng/mL C-Reactive Protein (<1.0) mg/dL NT-Pro-B Natriuret Pep (<450) pg/mL Total Protein (6.3-8.2) g/dL Albumin (3.5-5.0) g/dL Globulin (1.7-4.1) g/dL Albumin/Globulin Ratio (1.0-2.8) Procalcitonin (<0.5) ng/mL COVID-19 PCR (Negative) Imaging Data CT scan - chest: Radiologist's Impression: Bilateral patchy ground-glass opacities, no pneumothorax, right-sided pleural effusion, small left pleural effusion, No PE MDM Narrative Medical decision making narrative: Patient with a rapid onset respiratory failure requiring intubation. Patient is COVID-19 did, CT suggests bilateral patchy ground-glass opacities, infiltrate versus interstitial edema. Critical Care Time Critical Care Time Critical Care Time: Yes Total Critical Care Time: 60 Attestation: The high probability of a clinically significant, sudden or life threatening deterioration of the [CV] system(s) required my full and direct attention, intervention and personal management. The aggregate critical care time was [60] minutes. This time is in addition to time spent performing reported procedures but includes the following: [x] Data Review and interpretation [x] Patient assessment and monitoring of vital signs [x] Documentation [x] Medication orders and management Discharge Plan Departure Patient Disposition: [facility] Clinical Impression: Acute hyponatremia Respiratory failure Qualifiers: Chronicity: acute Respiratory failure complication: hypoxia Qualified Code(s): J96.01 - Acute respiratory failure with hypoxia Acute CHF Qualifiers: Heart failure type: unspecified Qualified Code(s): I50.9 - Heart failure, unspecified Prescriptions: No Action potassium chloride 10 mEq Capsule, Extended Release 10 meq PO DAILY RF: 0 pravastatin 40 mg Tablet 40 mg PO BEDTIME RF: 0 amlodipine 5 mg Tablet 5 mg PO DAILY RF: 0 levothyroxine 75 mcg Tablet 75 mcg PO QAM RF: 0 lorazepam 0.5 mg Tablet 1 mg PO Q6H PRN (Reason: Anxiety) RF: 0 desloratadine 5 mg Tablet 5 mg PO DAILY RF: 0 esomeprazole magnesium 40 mg Capsule,Delayed Release(Dr/Ec) 40 mg PO DAILY RF: 0 allopurinol 300 mg Tablet 300 mg PO DAILY RF: 0 coenzyme Q10 [Co Q-10] 100 mg Capsule 100 mg PO DAILY RF: 0 cholecalciferol (vitamin D3) [Vitamin D3] 1,000 unit Tablet 1,000 unit PO DAILY RF: 0 biotin 5 mg Tablet 5 mg PO DAILY RF: 0 denosumab 60 mg/mL Syringe 60 mg SUB-Q [id number] RF: 0 apixaban [Eliquis] 5 mg Tablet 5 mg PO BID Qty: 60 RF: 0 cephalexin [Keflex] 500 mg capsule 500 mg PO BID Qty: 10 RF: 0 guaifenesin [Mucus Relief ER] 600 mg Tablet Extended Release 12hr 1,200 mg PO BID PRN (Reason: Secretions) Qty: 14 RF: 0 furosemide 20 mg Tablet 20 mg PO DAILY Qty: 0 RF: 0 metoprolol tartrate 100 mg tablet 50 mg PO BID RF: 0 Referrals: Salvador Concepcion MD [Primary Care Provider] -
[2020-06-05] MEDS: EPINEPHrine 1 MG/10 ML SYRINGE (21:45)
[2020-06-05 22:34] VITALS: BP 147/72; PULSE 83; RESP 16; O2SAT 100
[2020-06-05 22:57] LABS: Add Manual Diff / Slide Review NO; Basophils Absolute Auto 100 /uL (0-100); Basophils Percent Auto 0.7 % (0-2); Eosinophils Absolute Auto 100 /uL (0-450); Eosinophils Percent Auto 0.7 % (2-4); Hematocrit 31.3 % (36-46); Lymphocytes Absolute Auto 500 /uL (1100-4500); Lymphocytes Percent Auto 3.8 % (25-40); Mean Corpuscular HGB Conc 31.9 % (30-36); Mean Corpuscular Hemoglobin 25.7 PG (26-34); Mean Corpuscular Volume 80.4 fL (80-100); Monocytes Absolute Auto 500 /uL (0-900); Monocytes Percent Auto 3.9 % (3-14); Neutrophils Absolute Auto 12400 /uL (1500-7000); Neutrophils Percent Auto 90.9 % (50-75); Platelet Count 346 X10^3/uL (150-400); Red Blood Cell Count 3.89 X10^6/uL (4.0-5.2); Red Cell Distribution Width 16.9 % (11.6-14.8); White Blood Cell Count 13.6 X10^3/uL (4.5-11.0)
[2020-06-05 23:10] LABS: COVID19 -Nasal RAPID Negative (Negative)
[2020-06-05 23:14] LABS: Alanine Aminotransferase 9 IU/L (<35); Albumin 2.8 g/dL (3.5-5.0); Albumin Globulin Ratio 0.9 (1.0-2.8); Alkaline Phosphatase 120 U/L (38-126); Aspartate Aminotransferase 21 IU/L (14-36); BUN Creatinine Ratio 21.2 (6-22); Bilirubin Total 0.3 mg/dL (0.2-1.3); Blood Urea Nitrogen 11 mg/dL (7-17); Calcium 8.2 mg/dL (8.4-10.2); Carbon Dioxide 28 mmol/L (22-32); Chloride 83 mmol/L (98-107); Creatine Kinase < 20 U/L (30-135); D Dimer 2167 ng/mL (<230); Estimated Glomerular Filt Rate > 60.0 mL/min (>60); Glucose 110 mg/dL (80-110); HEMOLYSIS < 15 (0-50); Potassium 4.5 mmol/L (3.4-5.1); Total Protein 5.8 g/dL (6.3-8.2)
[2020-06-05 23:19] LABS: Sodium 118 mmol/L (137-145)
[2020-06-05 23:25] LABS: HCO3 ABG 28 mmol/L (22-26); Oxygen Saturation ABG 89 % (95-100); PCO2 ABG 56.1 mmHg (35-45); PO2 ABG 63 mmHg (80-100); TCO2 ABG 30 mmol/L (21-31); pH ABG 7.31 (7.35-7.45)
[2020-06-05 23:25] LABS: NT-proBNP (BNP-Adult 18+) 6680 pg/mL (<450); Troponin I < 0.012 ng/mL (0.01-0.034)
[2020-06-05 23:27] LABS: Fractionated Inspired Oxygen 40
[2020-06-05 23:29] LABS: Procalcitonin < 0.05 ng/mL (<0.5)
[2020-06-05 23:35] LABS: Lactate Dehydrogenase 427 U/L (313-618)
[2020-06-05 23:38] LABS: C-Reactive Protein Quant 19.5 mg/dL (<1.0)
--- NOTE | 2020-06-05 23:38 | DI.CT.S_ITS ---
PROCEDURE: CT ANGIO CHEST PE PROTOCOL INDICATIONS: hypoxic respiratory failure, critical D Dimer TECHNIQUE: After the administration of intravenous contrast, 2 mm thick sections acquired from the pulmonary apices to the posterior costophrenic angles. 3-dimensional maximum intensity projection (MIP) coronal and sagittal reformats were then acquired through the thorax. For radiation dose reduction, the following was used: automated exposure control, adjustment of mA and/or kV according to patient size. COMPARISON: [facility], CT, CT ABDOMEN PELVIS W CON, 06/05/2020, 23:42. [facility], CT, CT CHEST WO CON, 06/05/2020, 21:38. FINDINGS: Image quality: Excellent. Pulmonary arteries: Pulmonary arteries are normal in size, and demonstrate no intraluminal filling defects to suggest central pulmonary embolism. Lungs and pleura: Bilateral emphysematous changes are present. There is mild right and minimal left pleural effusion. Fluid is present along the right major fissure. Bronchiectasis is present predominantly within the bases. Mediastinum: Heart size is enlarged, without pericardial effusion. Borderline enlarged mediastinal lymph nodes are present, the largest in the anterior paratracheal location measuring 12 mm. Thoracic aorta is normal in caliber and enhancement. Esophagus is normal in caliber, without hiatal hernia. Endotracheal and nasogastric tube are present. It is noted that the nasogastric tube appears to go into the stomach, coils and distal tip is within the distal esophagus. Bones and chest wall: No suspicious bony lesions. Ribs and thoracic spine appear intact throughout. Thyroid gland is unremarkable . No axillary or supraclavicular adenopathy. Abdomen: Visualized upper abdominal solid organs appear normal in the early arterial phase of enhancement. IMPRESSION: 1. Stable appearance of increased vascularity and pleural effusions consistent with edema. 2. No pulmonary embolism. 3. Coiled nasogastric tube and repositioning is recommended. The above findings are concordant with preliminary report. Dictated by: Carolann Le M.D. on 06/06/2020 at 8:44 Approved by: Carolann Le M.D. on 06/06/2020 at 9:03
--- NOTE | 2020-06-05 23:38 | DI.CT.S_ITS ---
PROCEDURE: CT ABDOMEN PELVIS W CON INDICATIONS: abdominal pain TECHNIQUE: After the administration of intravenous contrast, 5 mm thick sections acquired from the diaphragm to the symphysis. 5 mm coronal and sagittal reformats were acquired. For radiation dose reduction, the following was used: automated exposure control, adjustment of mA and/or kV according to patient size. COMPARISON: None. FINDINGS: Image quality: Excellent. ABDOMEN: Enteric tube is seen at looping within the esophagus with the distal tip pointing cranially. Recommend repositioning before use. A small hiatal hernia is present. Lung bases: Chronic fibrotic changes are seen in the included portions of the lung bases with reticulations and peripheral cysts. A small right pleural effusion is present. Heart size is normal. Solid organs: Mildly nodular appearance of the liver surface is compatible with cirrhosis. A 4 mm hypodense focus is seen in the central liver is nonspecific and may represent a cyst. Postsurgical changes from prior cholecystectomy. Dilatation of the common bile duct can be normal in the postcholecystectomy setting. There is diffuse pancreatic atrophy. Spleen is normal in size and enhancement. No adrenal nodules. Kidneys demonstrate normal size and enhancement, without hydronephrosis. Peritoneum and bowel: Numerous diverticula are seen in the colon without signs of acute diverticulitis. Bowel loops demonstrate normal wall thickness and caliber. No free fluid or air. Nodes and vessels: No retroperitoneal or mesenteric adenopathy by size criteria. Aorta and inferior vena cava are normal in size. Miscellaneous: A wide necked ventral hernia is seen in the upper abdomen without signs of bowel obstruction. PELVIS: Genitourinary: A Kemp catheter is seen within the bladder, which is decompressed. The uterus is not visualized, most likely secondary to prior hysterectomy. Miscellaneous: No inguinal hernias or adenopathy. Bones: No vertebral body compression fractures. Postsurgical changes are seen from right total hip arthroplasty with surrounding metallic streak artifact that mildly limits evaluation of adjacent structures. A well-defined area of sclerosis in the anterior superior aspect of the left femoral head is compatible with an area of chronic avascular necrosis. No collapse of the articular surface is seen. Multilevel degenerative changes are seen in the included portion of the spine. There is grade 2 anterolisthesis of L4 on L5 with a least moderate narrowing of the bony spinal canal. IMPRESSION: 1. Nodular appearance of the liver is compatible with cirrhosis. 2. Colonic diverticulosis without signs of acute diverticulitis. 3. Enteric tube is seen looping in the esophagus with tip oriented cranially at the level of the mid esophagus. Recommend repositioning before use. Moderate hiatal hernia. 4. Sclerotic appearance of the anterior superior aspect of the left femoral head is suspicious for chronic avascular necrosis. There is no collapse of the articular surface. 5. Grade 2 anterolisthesis of L4 on L5 without least moderate narrowing of the bony spinal canal. Additional multilevel degenerative changes are seen. 6. Chronic fibrotic changes in the included portions of the lung bases. Small right pleural effusion. Findings are concordant with the Teleradiology report. Dictated by: Lukas Roman M.D. on 06/06/2020 at 8:16 Approved by: Lukas Roman M.D. on 06/06/2020 at 8:38
[2020-06-05 23:48] LABS: Ferritin 91 ng/mL (11-264)
[2020-06-05 23:50] VITALS: BP 161/79; PULSE 78; RESP 20; O2SAT 98
[2020-06-06] VITALS (43 sets, daily range): BP systolic 60–158; BP diastolic 35–79; PULSE 57–80; RESP 12–40; O2SAT 91–100
[2020-06-06] MEDS: levoFLOXacin 750 MG/150 ML PIGGYBACK 100 MG IV (02:40)
[2020-06-06] MEDS: FUROSEMIDE 40 MG/4 ML VIAL IV (02:46)
[2020-06-06] MEDS: fentaNYL 100 MCG/2 ML INJ IV (02:57)
[2020-06-06 03:28] LABS: BUN Creatinine Ratio 22.9 (6-22); Blood Urea Nitrogen 11 mg/dL (7-17); Calcium 8.1 mg/dL (8.4-10.2); Carbon Dioxide 24 mmol/L (22-32); Chloride 83 mmol/L (98-107); Estimated Glomerular Filt Rate > 60.0 mL/min (>60); Glucose 149 mg/dL (80-110); HEMOLYSIS < 15 (0-50); Potassium 4.5 mmol/L (3.4-5.1)
[2020-06-06 03:31] LABS: Sodium 117 mmol/L (137-145)
[2020-06-06] MEDS: KETAMINE 500 MG/5 ML INJ 60 MG IV (04:02)
[2020-06-06] MEDS: EPINEPHrine 1 MG/10 ML SYRINGE IV ×5 (04:25→04:55)
--- NOTE | 2020-06-06 05:00 | PC.NURSE ---
Pt opening eyes, able to nod head for yes and no questions. able to make needs known with head nods. Pt made aware of her being uncomfortable. provider aware. received order to give dose of ketamine. Pt received Ketamine and systolic blood pressures began to drop to 60s-70s. Provider aware. provider pushing small doses of epinephrine. Would bring systolic bp over 100 but then would drop again. Provider pushed a total of 0.05mg of epinephrine during that hour, see mar. Levefed was started upon arrival of transfer ambulance.
[2020-06-06] MEDS: NOREPINEPHRINE 4 MG in DEXTROSE 5% IN WATER 250 ML 30.48 ML IV (05:01)
== END 2020-06-06 05:15 | disposition short-term general hospital (02) ==
PROVIDERS: Emergency Provider Emergency Medicine; Family Provider Internal Medicine; PCP Internal Medicine; Referring Provider Emergency Medicine
DX: E87.1 Hypo-osmolality and hyponatremia (principal); J96.01 Acute respiratory failure with hypoxia; I50.9 Heart failure, unspecified; I48.91 Unspecified atrial fibrillation; Z79.01 Long term (current) use of anticoagulants
CPT/HCPCS: 31500; 36415; 36600; 51705; 70450; 71250; 71275; 74177; 80048; 80053; 82550; 82553; 82728; 82805; 83605; 83615; 83880; 84145; 84484; 85025; 85379; 86140; 87040; 87635; 94002; 94003; 94770; 94799; 96361; 96365; 96366; 96375; 96376; 99285; 99291; 99292; J0171; J1940; J1956; J3010; Q9967